=== PATIENT | female | born 1955 | race Caucasian/White ===

== ENCOUNTER → 2016-03-13 16:40 | Outpatient (CLI) | payer OTHER ==
[2010-04-16 15:18] VITALS: BMI 33.8
== END | disposition home or self-care (01) ==
LOC: D.MAMMO 15:30
DX: Z12.31 Encounter for screening mammogram for malignant neoplasm of breast (principal)

== ENCOUNTER 2016-12-05 11:29 | Outpatient (CLI) | payer OTHER ==
--- NOTE | ~2016-12-05 | HEMODYNAMI ---
PATIENT:FANNY HARTMAN MEDICAL RECORD: [id number] : 51 LOCATION:D.CAT ADMISSION DATE: 12/05/16 Generatedon:12/05/201614:11 Patient name: FANNY HARTMAN Patient #: [id number] SSN: : Date of study: 12/05/2016 Page: Of Hemodynamic Procedure Report Patient Data Patient Demographics Procedure consent was obtained First Name: FANNY Gender: Female Last Name: DEVAN : 1955 Middle Initial: APPLE Age: 61 year(s) Patient #: [id number] Race: Unknown Additional ID: [id number] Contact details [address]: [address] [place] [address] State: [place] City: [place] Zip code: [address] Admission Admission Data Admission Date: 12/05/2016 Admission Time: 11:29 Lab Results Lab Result Date: 12/05/2016 Lab Result Time: 0:00 Biochemistry Name Units Result Min Max Creatinine mg/dl 1.4 --(----)*- 0.6 1.3 CBC Name Units Result Min Max Hemoglobin g/dl 12.5 *-(----)-- 13.5 17.5 Procedure Procedure Types Cath Procedure Diagnostic Procedure [facility] w/Coronaries PCI Procedure Coronary Stent Initial Miscellaneous Procedures Moderate Sedation up to 30 minutes Procedure Description Procedure Date Procedure Date: 12/05/2016 Procedure Start Time: 13:34 Procedure End Time: 14:10 Procedure Staff Name Function Paulo Estrada MD Performing Physician Donna Casey RT Scrub Afshin Adkins RT Scrub Roge Shirley RT Monitor Benjamin Fischer RN Nurse Procedure Data Cath Procedure Fluoroscopy Diagnostic fluoroscopy Total fluoroscopy Time: 9.9 time: 9.9 min min Diagnostic fluoroscopy Total fluoroscopy dose: dose: 1182 mGy 1182 mGy Contrast Material Contrast Material Type Amount (ml) Isovue 300 137 Entry Location Entry Primary Successful Side Size Upsize Upsize Entry Closure [place] ccessful Closure Location (Fr) 1 (Fr) 2 (Fr) Remarks Device Remarks Radial Right 6 Fr Mechanical artery Short Compression Estimated blood loss: 10 ml Diagnostic catheters Device Type Used For End Catheter Placement Diagnostic Terumo 5Fr Procedure [place] 110cm catheter Procedure Complications No complications Procedure Medications Medication Administration Route Dosage 0.9% NaCl I.V. 100 ml/hr Oxygen NC 2 l/min Heparin Flush Bag added to field 2 bags (1000units/500ml NS) Lidocaine 2% added to field 20 Radial Cocktail added to field 1 syringe (Verapomil 2mg/Nitro 400mcg/Heparin 1500units) Versed I.V. 1 mg Fentanyl I.V. 50 mcg Radial Cocktail I.A. 1 syringe (Verapomil 2mg/Nitro 400mcg/Heparin 1500units) Heparin Bolus I.V. 5000 units Integrilin (Bolus I.V. 9 ml 2mg/ml) Fentanyl I.V. 50 mcg Plavix P.O. 600 mg Hemodynamics Rest HGB: 12.5 (g/dl) Heart Rate: 70 (bpm) Pressure Samples Time Site Value (mmHg) Purpose Heart Use Rate(bpm) 13:37 LV 131/2,9 Snapshot 75 13:38 AO 154/83(113) Pullback 77 13:38 LV 125/8,6 Pullback 77 13:38 AO 161/89(120) Snapshot 74 13:55 AO 188/90(131) Snapshot 75 Gradients Valve Time Site 1 Site 2 Mean SEP/DFP Peak To Heart Use (mmHg) (sec/min) Peak Rate (mmHg) (bpm) Aortic 13:38 LV AO 0 77 125/8,6 154/83(113) Calculations Valve P-P Mean Valve Index Valve Source Name Gradient Area Flow (cm2) Aortic 0 0 Snapshots Pre Cath Intra NCS Post Cath Vital Signs Time Heart Resp SPO2 etCO2 SY2tnxh NIBP (mmHg) Rhythm Pain Sedation Rate (ipm) (%) (mmHg) (mmHg) Status Level (bpm) 13:27:20 72 13 99 0 0 171/87(139) NSR 0 (11) 10(A) , No pain 13:32:21 67 18 96 0 0 159/83(125) NSR 0 (11) 10(A) , No pain 13:37:18 140 23 94 0 0 149/82(116) NSR 0 (11) 10(A) , No pain 13:42:10 72 16 94 0 0 147/85(107) NSR 0 (11) 10(A) , No pain 13:47:05 73 16 98 0 0 151/78(122) NSR 0 (11) 10(A) , No pain 13:52:01 74 18 99 0 0 160/76(118) NSR 0 (11) 10(A) , No pain 13:56:55 67 19 100 0 0 175/88(139) NSR 0 (11) 10(A) , No pain 14:01:54 67 19 100 0 0 165/75(131) NSR 0 (11) 10(A) , No pain 14:06:49 75 17 99 0 0 170/98(140) NSR 0 (11) 10(A) , No pain Medications Time Medication Route Dose Verified Delivered Reason Note s Effectiveness by by 13:25:47 0.9% NaCl I.V. 100 Benjamin Benjamin Per physician ml/hr Aaliyah Fischer RN RN 13:26:05 Oxygen NC 2 l/min Benjamin Benjamin Per physician Aaliyah Fischer RN RN 13:26:23 Heparin Flush added 2 bags Benjamin Benjamin used for Bag to Lorely Fischer procedure (1000units/500ml field RN RN NS) 13:26:47 Lidocaine 2% added 20ml Benjamin Benjamin for local to vial Aaliyah Fischer anesthetic field DAVILA RN 13:29:52 Radial Cocktail added 1 Benjamin Benjamin used for (Verapomil to syringe Lorigan Lorely procedure 2mg/Nitro RN RN 400mcg/Heparin 1500units) 13:30:06 Versed I.V. 1 mg Benjamin Benjamin for sedation Aaliyah Fischer RN RN 13:30:18 Fentanyl I.V. 50 mcg Benjamin Benjamin for sedation Aaliyah Ficsher RN RN 13:36:43 Radial Cocktail I.A. 1 Benjamin Paulo used for (Verapomil syringe Rachaeligan Sean procedure 2mg/Nitro LOLA MCCARTNEY 400mcg/Heparin 1500units) 13:47:17 Heparin Bolus I.V. 5000 Benjamin Benjamin for units Aaliyah Fischer anticoagulation RN RN 13:47:54 Integrilin I.V. 9 ml Benjamin Benjamin for (Bolus 2mg/ml) Aaliyah Fischer antiplatelet RN RN therapy 13:57:44 Fentanyl I.V. 50 mcg Benjamin Alexander for sedation Aaliyah Fischer RN RN 14:04:17 Plavix P.O. 600 mg Benjamin Alexander for Aaliyah Fischer antiplatelet RN RN therapy Procedure Log Time Note 13:00:53 Afshin Adkins RT(R) sent for patient. Start room use. 13:01:17 Lab Result : Creatinine 1.4 mg/dl 13:01:17 Lab Result : Hemoglobin 12.5 g/dl 13:03:56 Time tracking: Regular hours 13:04:03 Plan of Care:Hemodynamics will remain stable., Cardiac rhythm will remain stable., Comfort level will be maintained., Respiratory function will remain adequate., Patient/ family verbilizes understanding of procedure., Procedure tolerated without complication., Recovers from procedure without complications.. 13:04:31 H&P Date Dictated: 11/20/2016 Within 30 days and on chart., H&P Addendum completed by physician on day of procedure. (MUST COMPLETE FOR ALL OUTPATIENTS). 13:20:07 Patient received from Pre/Post Procedure Room to CCL 1 Alert and oriented. Tansferred to table in Supine position. 13:20:08 Correct patient and procedure confirmed by team. 13:20:08 Warm blankets applied, and tripp hugger turned on for patient comfort. 13:20:10 ECG and BP/O2 sat monitors applied to patient. 13:20:10 Signed procedure consent form obtained from patient. 13:25:12 Vital chart was started 13:25:47 0.9% NaCl 100 ml/hr I.V. was administered by Benjamin Fischer RN; Per physician; 13:26:05 Oxygen 2 l/min NC was administered by Benjamin Fischre RN; Per physician; 13:26:23 Heparin Flush Bag (1000units/500ml NS) 2 bags added to field was administered by Benjamin Fischer RN; used for procedure; 13:26:47 Lidocaine 2% 20ml vial added to field was administered by Benjamin Fischer RN; for local anesthetic; 13:28:14 Baseline sample Acquired. 13:28:18 Rhythm: sinus rhythm 13:28:26 Full Disclosure recording started 13:28:28 Pre-procedure instructions explained to patient. 13:28:28 Pre-op teaching completed and patient verbalized understanding. 13:28:31 Family in waiting room. 13:28:32 Patient NPO since Midnight. 13:28:36 Is the patient allergic to Iodine/contrast media? No. 13:28:37 Is patient on blood thinner?No 13:28:38 Patient diabetic? No. 13:28:42 Patient not . Patient is over age 55. 13:28:44 Previous problem with sedation/anesthesia? No ? 13:28:45 Snore? No 13:28:46 Sleep apnea? No 13:28:47 Deviated septum? No 13:28:48 Opens mouth fully? Yes 13:28:49 Sticks out tongue? Yes 13:28:51 Airway obstruction? No ? 13:28:53 Dentures? No ? 13:28:56 Pre procedure: right dorsailis pedis pulse 1+ Palpable, but thready & weak; easily obliterated 13:28:58 Modified Armani's test Ulnar < 7 seconds 13:29:02 Patient pain scale 0/10 ?. 13:29:09 IV patent on arrival in left forearm with 0.9% NaCl at [facility]. 13:29:15 Lab results completed and on chart. 13:29:29 Right Radial & Right Groin area was prepped with chlora-prep and draped in sterile fashion 13:29:31 Alarms reviewed by R. N. 13:29:31 Sharps counted by scrub and verified by R.N. 13:29:32 --------ALL STOP TIME OUT------ 13:29:33 Final Timeout: patient, procedure, and site verified with staff and physician. All members of the team are in agreement. 13:29:36 Right Radial & Right Groin site verified by team. 13:29:41 Physical assessment completed. ASA score P 2 - A patient with mild systemic disease as per Paulo Estrada MD. 13:29:45 Sedation plan: IV Moderate Sedation Versed, Fentanyl 13:29:52 Radial Cocktail (Verapomil 2mg/Nitro 400mcg/Heparin 1500units) 1 syringe added to field was administered by Benjamin Fischer RN; used for procedure; 13:30:06 Versed 1 mg I.V. was administered by Benjamin Fischer RN; for sedation; 13:30:18 Fentanyl 50 mcg I.V. was administered by Benjamin Fischer RN; for sedation; 13:32:31 Use device set Radial Dx 13:32:32 Tegaderm 4 x 4 opened to sterile field. 13:32:33 Acist Hand Control opened to sterile field. 13:32:34 Acist Manifold opened to sterile field. 13:32:35 Acist Syringe opened to sterile field. 13:32:35 Medline Cath Pack opened to sterile field. 13:32:35 Bag Decanter opened to sterile field. 13:32:36 Terumo 6Fr Slender Glidesheath opened to sterile field. 13:32:36 St [place] 260cm J .035 wire opened to sterile field. 13:32:36 MBrace Wrist Support opened to sterile field. 13:34:32 Procedure started. 13:34:37 Local anesthetic to right radial artery with Lidocaine 2% by Paulo Estrada MD.INITIAL ACCESS ONLY 13:36:07 A 6 Fr Short sheath was inserted into the Right Radial artery 13:36:43 Radial Cocktail (Verapomil 2mg/Nitro 400mcg/Heparin 1500units) 1 syringe I.A. was administered by Paulo Estrada MD; used for procedure; 13:36:54 A Diagnostic Terumo 5Fr [place] 110cm catheter was advanced over the wire and used for Procedure. 13:37:58 LV angiography performed. 13:38:02 LV gram done using [place] 13:38:07 EF : 55 % 13:38:18 LV hemodynamics recorded. 13:38:20 Injector settings: Ml/sec: 7, Volume: 15, 13:39:04 LCA angiography performed. 13:40:41 RCA angiography performed. 13:41:38 Catheter exchanged over wire. 13:42:15 Delvalle Whisper J 300cm 0.014 guide wire opened to sterile field. 13:42:16 [employer] BasixCompak Inflation Kit opened to sterile field. 13:42:16 PolyRemedy Launcher 6Fr EBU 3.5 guide catheter opened to sterile field. 13:43:12 Study PCI Site: [place] mCirc has 90% stenosis. 13:43:18 ACC Pre-intervention TRACIE Flow is 3. 13:43:49 6 Fr EBU 3.5 guide catheter was inserted over the wire 13:46:19 WHISPER wire advanced. 13:47:17 Heparin Bolus 5000 units I.V. was administered by Benjamin Fischer RN; for anticoagulation; 13:47:54 Integrilin (Bolus 2mg/ml) 9 ml I.V. was administered by Benjamin Fischer RN; for antiplatelet therapy; 13:48:42 Wire advanced across lesion. 13:49:54 Inflation number: 1 A [place] Sci Perkins 3.0 X 15 balloon was prepped and advanced across the Mid CX, then inflated to 10 ASMITA for 0:30 (min:sec). 13:52:24 Balloon removed over the wire. 13:54:37 Inflation Number: 2 A Mihir RX 3.0 x 26 stent was prepped and advanced across the Mid CX. The stent was deployed at 14 ASMITA for 0:45 (min:sec). 13:54:59 Stent catheter was removed intact over wire. 13:55:26 Perkins readvanced. 13:57:44 Fentanyl 50 mcg I.V. was administered by Benjamin Fischer RN; for sedation; 14:00:05 Delvalle Whisper J 300cm 0.014 guide wire opened to sterile field. 14:01:21 Whisper wire damaged, new Whisper advanced in attempt to wire the OM. 14:01:58 Wire advanced across lesion. 14:03:18 The [place] Sci Perkins 2.0 X 12 balloon was advanced and then removed because of failure to cross lesion 14:03:36 Terumo TR Band Standard opened to sterile field. 14:03:46 ACC Post-intervention TRACIE Flow is 3. 14:03:52 Wire removed. 14:03:53 Guide catheter removed. 14:04:03 Sheath removed intact; hemostasis achieved with Mechanical Compression to the Right Radial artery. 14:04:05 Procedure ended.(Physican Out) 14:04:17 Plavix 600 mg P.O. was administered by Benjamin Fischer RN; for antiplatelet therapy; 14:04:55 Fluoroscopy time 09.90 minutes. 14:05:01 Flurop Dose total: 1182 14:05:01 Fluoroscopy dose: 1182 mGy 14:05:05 Contrast amount:Isovue 300 137ml. 14:05:06 Sharps counted by scrub and verified by R.N. 14:05:08 TR band inflated with 12cc of air. 14:05:10 Insertion/operative site no bleeding no hematoma. 14:05:12 Post Procedure Pulses reassessed and unchanged 14:05:14 Post-procedure physical assessment completed. ASA score P 2 - A patient with mild systemic disease as per Paulo Estrada MD. 14:05:16 Post procedure rhythm: unchanged. 14:05:19 Estimated blood loss: 10 ml 14:05:20 Post procedure instruction explained to patient.Patient verbalizes understanding. 14:05:20 Patient needs reinforcement of post procedure teaching. 14:05:36 Procedure type changed to Cath procedure, Diagnostic procedure, LHC, LHC w/Coronaries, PCI procedure, Coronary Stent Initial, Miscellaneous Procedures, Moderate Sedation up to 30 minutes 14:05:38 Procedure and supply charges have been captured, reviewed, submitted and are correct. 14:05:41 Procedure Complication : No complications 14:10:44 Vital chart was stopped 14:10:45 See physician's report for complete and final results. 14:10:46 Report given to Pre/Post Procedure Room. 14:10:49 Patient transfered to Pre/Post Procedure Room with Stretcher. 14:10:51 Procedure ended. 14:10:51 Full Disclosure recording stopped 14:10:56 End room use (Document Last) Intervention Summary Intervention Notes Time ActionType Lesion and Equipment Action# Pressure Duration Attributes Used 13:49:54 Inflate Mid CX [place] 1 10 00:30 balloon Sci Perkins 3.0 X 15 balloon 13:54:37 Place stent Mid CX Mihir RX 2 14 00:45 3.0 x 26 stent 14:03:18 Discard [place] Balloon Sci Perkins 2.0 X 12 balloon Device Usage Item Name Manufacture Quantity Catalog Number Hospital Part Current Min imal Lot# / Charge Number Stock Stock Serial# Code Tegaderm 4 1 [id number] [id number] [id number] 5 x 4 Acist Hand Acist 1 25408 660754 749834 464306 5 Control Medical Systems Inc Acist Acist 1 67361 141409 538575 193695 5 Manifold Medical Systems Inc Acist Acist 1 01978 473631 127276 987330 20 Syringe Medical Systems Inc Medline Cardinal 1 [id number] 369525 66660 497792 5 Cath Pack Health Bag Microtek 1 2001S 379007 96276 089357 5 Stealth [employer] Network[employer] Grid. Terumo 6Fr Terumo 1 [id number] 612191 003075 546875 [address] St Randal 1 959554 903990 638441 300311 30 260cm J .035 wire MBrace Advanced 1 140-0250-00 615359 23537 626207 5 Wrist Vascular Support Dynamics Diagnostic Terumo 1 40-8143 943539 633936 151205 5 Terumo 5Fr [place] 110cm catheter [facility] 2 [id number] 524509 996994 660271 5 Whisper J Vascular 300cm 0.014 guide wire Merit Merit 1 [id number] 417461 809936 808422 15 BasixCompak Medical Inflation Kit Medtronic Medtronic 1 [id number] 303392 85286 338316 3 Launcher 6Fr EBU 3.5 guide catheter [place] Sci [place] 1 [id number] 305898 367025 542196 1 [id number] Perkins Scientific 3.0 X 15 balloon Shiloh RX 3.0 Medtronic 1 [id number] 640436 8712394 163327 5 [id number] x 26 stent [place] Sci [place] 1 [id number] 613524 938059 848470 1 [id number] Perkins Scientific 2.0 X 12 balloon Terumo TR Terumo 1 [id number] 216076 134603 698611 40 Band Standard Signature Audit [place] Stage Time Signature Unsigned Intra-Procedure 12/05/2016 Afshin Adkins 2:11:22 PM RT(R) Signatures Monitor : Roge Shirley RT Signature : Date : Time : [facility] [address], [place] [address]
[2016-12-05] MEDS ORDERED: AMABELZ 0.5 MG1 EACH PO (11:48)
[2016-12-05] MEDS ORDERED: LOSARTAN POTASS25 MG PO (11:48)
[2016-12-05] MEDS ORDERED: ZIAC 5-6.25 MG1 TAB PO (11:48)
[2016-12-05] MEDS ORDERED: ASPIRIN325 MG PO (11:49)
[2016-12-05] MEDS ORDERED: OMEPRAZOLE20 M1 PO (11:49)
[2016-12-05] MEDS ORDERED: ZYRTEC10 MG PO (11:49)
[2016-12-05] MEDS ORDERED: VITAMIN D31000 UNIT PO (11:50)
[2016-12-05] MEDS ORDERED: PROBIOTIC1 EAC1 PO (11:50)
[2016-12-05] MEDS ORDERED: MULTIPLE VITAMI1 TA1 PO (11:50)
[2016-12-05] MEDS ORDERED: ASCORBIC ACID500 MG PO (11:51)
[2016-12-05] MEDS ORDERED: VITAMIN B-12100 MCG PO (11:51)
[2016-12-05 12:03] VITALS: BP 183/92; BMI 37.8
[2016-12-05 12:15] LABS: BASOPHILS 0.6 % (0-2); EOSINOPHILS 2.8 % (0-7); HEMATOCRIT 37.2 % (36.0-48.0); HEMOGLOBIN 12.5 g/dL (12-16); IMMATURE GRANULOCYTES 0.3 % (0-5); LYMPHOCYTES 24.5 % (15-50); MCH 30.3 pg (26.0-34.0); MCHC 33.6 g/dL (31.0-37.0); MCV 90.3 fL (80.0-100.0); MEAN PLATELET VOLUME 9.6 fL (7.4-10.4); MONOCYTES 6.6 % (2-11); NEUTROPHILS 65.2 % (40-80); PLATELET COUNT 311 10x3/uL (130-400); RBC 4.12 10x6/uL (4.00-5.40); RDW 12.9 % (11.5-14.5); WBC 7.9 10x3/uL (4.8-10.8)
[2016-12-05 12:24] LABS: ANION GAP 10.4 mmol/L (8-16); CALCIUM 9.1 mg/dL (8.5-10.1); CARBON DIOXIDE 27.7 mmol/L (21.0-32.0); CREATININE - SERUM 1.4 mg/dL (0.6-1.3); POTASSIUM - SERUM 4.1 mmol/L (3.5-5.1)
[2016-12-05] MEDS ORDERED: PLAVIX75 MG PO (14:26)
--- NOTE | 2016-12-05 14:36 | NUR ---
1435 HOB ELEVATED, AWAKE AND TALKING WITH FAMILY AT BEDSIDE. NSR RATE 61 WNO C/O CHEST PAIN. PULSES PALP X 4. R WRIST TR BAND HEMATOMA DEVELOPING ON ARRIVAL. ADJUSTED BY CRISTIAN RON, WILL MONITOR FOR CONTINUED BLEEDING. DENIES NEEDS AT THIS TIME.
--- NOTE | 2016-12-05 15:32 | NUR ---
1500 R WRIST TR BAND REMAINS C/D/I. ALL VITALS WNL. ROOM AIR. DENIES NEEDS AT THIS TIME. AT BEDSIDE.
--- NOTE | 2016-12-05 16:39 | NUR ---
1600 R WRIST TR BAND REMAINS C/D/I W NO HEMATOMA OR BLEEDING.
--- NOTE | 2016-12-05 17:12 | NUR ---
2CC AIR REMOVED FROM R WRIST TR BAND. WILL MONITOR FOR BLEEDING.
--- NOTE | 2016-12-05 17:38 | NUR ---
PIV REMOVED FROM R AC WITH BANDAID APPLIED. ANOTHER 2CC AIR REMOVED FROM R WRIST TR BAND. WRIST IS ALREADY BRUISING FROM HEMATOMA ON ARRIVAL. PATIENT UP TO BEDSIDE TO DRESS WITH ASSIST FROM .
--- NOTE | 2016-12-05 17:41 | NUR ---
AMBULATED TO BATHROOM TO VOID.
--- NOTE | 2016-12-05 17:55 | NUR ---
D/C INSTRUCTIONS DISCUSSED WITH PATIENT AND , PLAVIX RX IN HAND. TR BAND WEANED AND REMOVED. COTTON BALL AND TEGADERM APPLIED, BRACE RE-APPLIED TO R WRIST. BOTH VERBALIZED UNDERSTANDING OF POST CATH INSTRUCTIONS. WHEELED OUT VIA WHEELCHAIR.
--- NOTE | 2016-12-06 14:50 | OP ---
PATIENT NAME: FANNY HARTMAN MEDICAL RECORD: [id number] :51 LOCATION:D.CAT ADMISSION DATE: SURGEON: SILVIA WHITE MD DATE OF OPERATION: 12/05/2016 PROCEDURES: Left heart catheterization, selective coronary angiography, right radial approach. CATHETERS: A 5-[place] sheath, 5/4 left and right Felipe, 5/4 pig. The procedure was well tolerated. The patient returned to the butterfield, sheath removed. TR band was placed. FINDINGS: Left ventriculography in 30-degree [place] view: Normal wall motion and normal systolic function. CORONARY ANATOMY: LEFT MAIN: Left main is free of disease. LAD: Has a proximal stenosis of about 80%, otherwise free of disease. CIRCUMFLEX: Circumflex has a long diffuse stenosis of about 90%, best seen in caudal view. RIGHT CORONARY ARTERY: Free of disease. IMPRESSION: Plan intervention to the circumflex. PLAN: Intervention to the circumflex momentarily, LAD at a later date. Using indwelling sheath, EBU 3.5 catheter provided good guide catheter support followed by 300-cm Whisper wire, which was placed across the occluded circumflex to distal portion of this vessel. Predeployment balloon was a 3.0 x 15 mm [place] up to 10 atmospheres. Stent deployed was a 3.0 x 26-mm [place] drug-eluting stent up to 14 atmospheres for 45 seconds. Final angiography shows excellent resolution of 90% plus circumflex stenosis, there was no significant residual. There was some snowplowing to small OM. We were able to place a wire across this, but unable to place a balloon. The stent struts shows was left with some residual in the small OM. Plan: Intervention to LAD at a later date. TRANSINT:[id number] Voice Confirmation ID: [id number] DOCUMENT ID: [id number] SILVIA WHITE MD at 1450 CC: [id number] DICTATION DATE: 12/05/16 1415 RELOCATION COUNSELOR: 12/05/16 1449 DEP CLI 12/05/16 [place] [address]
== END 2016-12-05 17:56 | disposition home or self-care (01) ==
LOC: D.CATH 11:29
PROVIDERS: Internal Medicine Interventional Cardiology
DX: I20.9 Angina pectoris, unspecified (principal); I10 Essential (primary) hypertension; E78.5 Hyperlipidemia, unspecified; Z01.812 Encounter for preprocedural laboratory examination
CPT/HCPCS: 93458; C9600

== ENCOUNTER 2016-12-21 11:03 | Outpatient (CLI) | payer OTHER ==
--- NOTE | ~2016-12-21 | HEMODYNAMI ---
PATIENT:FANNY HARTMAN MEDICAL RECORD: [id number] : 51 LOCATION:D.CAT ADMISSION DATE: 12/21/16 Generatedon:12/21/201614:46 Patient name: FANNY HARTMAN Patient #: [id number] SSN: : Date of study: 12/21/2016 Page: Of Hemodynamic Procedure Report Patient Data Patient Demographics Procedure consent was obtained First Name: FANNY Gender: Female Last Name: DEVAN : 1955 Middle Initial: APPLE Age: 61 year(s) Patient #: [id number] Race: Unknown Additional ID: [id number] Contact details [address]: [address] [place] [address] State: [place] City: [place] Zip code: [address] Admission Admission Data Admission Date: 12/21/2016 Admission Time: 11:03 Lab Results Lab Result Date: 12/21/2016 Lab Result Time: 0:00 Biochemistry Name Units Result Min Max BUN mg/dl 23 --(----)-* 7 18 Creatinine mg/dl 1.3 --(---*)-- 0.6 1.3 CBC Name Units Result Min Max Hematocrit % 35.1 *-(----)-- 42 54 Hemoglobin g/dl 11.7 *-(----)-- 13.5 17.5 Procedure Procedure Types Cath Procedure PCI Procedure Coronary Stent Initial Miscellaneous Procedures Moderate Sedation up to 15 minutes Procedure Description Procedure Date Procedure Date: 12/21/2016 Procedure Start Time: 14:30 Procedure End Time: 14:43 Procedure Staff Name Function Paulo Estrada MD Performing Physician Andra Braun RT Scrub Suyapa Stone RN Nurse Roge Shirley RT Monitor Procedure Data Cath Procedure Fluoroscopy Diagnostic fluoroscopy Total fluoroscopy Time: 1.6 time: 1.6 min min Diagnostic fluoroscopy Total fluoroscopy dose: 376 dose: 376 mGy mGy Contrast Material Contrast Material Type Amount (ml) Isovue 300 41 Entry Location Entry Primary Successful Side Size Upsize Upsize Entry Closure Succes sful Closure Location (Fr) 1 (Fr) 2 (Fr) Remarks Device Remarks Femoral Right 6 Fr Exoseal artery Short Estimated blood loss: 10 ml Procedure Complications No complications Procedure Medications Medication Administration Route Dosage Oxygen NC 2 l/min Lidocaine 2% added to field 20 Heparin Flush Bag added to field 2 bags (1000units/500ml NS) 0.9% NaCl I.V. 100 ml/hr Versed I.V. 1 mg Fentanyl I.V. 50 mcg Heparin Bolus I.V. 4000 units Versed I.V. 1 mg Fentanyl I.V. 50 mcg Versed I.V. 1 mg Hemodynamics Rest HGB: 11.7 (g/dl) Heart Rate: 74 (bpm) Snapshots Pre Cath Intra NCS Post Cath Vital Signs Time Heart Resp SPO2 etCO2 NIBP (mmHg) Rhythm Pain Sedation Rate (ipm) (%) (mmHg) Status Level (bpm) 14:26:08 70 17 100 42.1 175/97(148) NSR 0 (11) 10(A) , No pain 14:30:26 74 16 96 39.9 158/97(119) NSR 0 (11) 9(A) , No pain 14:34:38 73 16 99 31.6 155/90(134) NSR 0 (11) 9(A) , No pain 14:38:50 72 15 100 34.6 169/88(139) NSR 0 (11) 9(A) , No pain 14:43:08 72 16 100 35.4 158/84(128) NSR 0 (11) 10(A) , No pain Medications Time Medication Route Dose Verified Delivered Reason Notes Effectiveness by by 14:26:58 Oxygen NC 2 Paulo José Manuelie used for l/min St. Melvin Stone RN procedure 14:27:07 Lidocaine 2% added 20ml Paulo Buffie for local to vial St. Melvin Stone RN anesthetic field 14:27:13 Heparin Flush added 2 Paulo Buffie used for Bag to bags St. Melvin Stone RN procedure (1000units/500ml field MCCARTNEY NS) 14:27:22 0.9% NaCl I.V. 100 Paulo Buffie Per physician ml/hr [facility]. Melvin Stone RN, MD 14:28:41 Versed I.V. 1 mg Paulo José Manuelie for sedation St. Melvin Stone RN, MD 14:28:46 Fentanyl I.V. 50 Paulo Georgesie for sedation mcg St. Melvin Stone RN, MD 14:30:59 Heparin Bolus I.V. 4000 Paulo Buffie for verifi ed units St. Melvin Stone RN anticoagulation with dr MD martinez 14:32:07 Versed I.V. 1 mg Paulo Georgesie for sedation St. Melvin Stone RN, MD 14:32:11 Fentanyl I.V. 50 Paulo Georgesie for sedation mcg St. Melvin Stone RN, MD 14:38:08 Versed I.V. 1 mg Paulo Georgesie for sedation St. Melvin Stone RN, MD Procedure Log Time Note 13:59:28 Andra Counts RT(R) sent for patient. Start room use. 13:59:29 Time tracking: Regular hours 13:59:32 Plan of Care:Hemodynamics will remain stable., Cardiac rhythm will remain stable., Comfort level will be maintained., Respiratory function will remain adequate., Patient/ family verbilizes understanding of procedure., Procedure tolerated without complication., Recovers from procedure without complications.. 14:07:57 Patient received from Pre/Post Procedure Room to CCL 2 Alert and oriented. Tansferred to table in Supine position. 14:07:58 Warm blankets applied, and tripp hugger turned on for patient comfort. 14:07:59 Correct patient and procedure confirmed by team. 14:08:00 Signed procedure consent form obtained from patient. 14:08:01 ECG and BP/O2 sat monitors applied to patient. 14:08:01 Full Disclosure recording started 14:25:01 Vital chart was started 14:25:45 Baseline sample Acquired. 14:25:51 Rhythm: sinus rhythm 14:25:56 H&P Date Dictated: 12/21/2016 Within 30 days and on chart.. 14:25:57 Pre-procedure instructions explained to patient. 14:25:57 Pre-op teaching completed and patient verbalized understanding. 14:25:58 Family in waiting room. 14:25:59 Patient NPO since Midnight. 14:26:02 Is patient on blood thinner?Yes 14:26:05 ACC The patient was administered the following blood thiners within the last 24 hours: ACCPlavix 14:26:07 Patient diabetic? No. 14:26:10 Previous problem with sedation/anesthesia? No ? 14:26:12 Snore? Yes 14:26:13 Sleep apnea? No 14:26:13 Deviated septum? No 14:26:14 Opens mouth fully? Yes 14:26:15 Sticks out tongue? Yes 14:26:18 Airway obstruction? No ? 14:26:20 Dentures? No ? 14:26:23 Pre procedure: right dorsailis pedis pulse 1+ Palpable, but thready & weak; easily obliterated 14:26:26 Patient pain scale 0/10 ?. 14:26:31 IV patent on arrival in right forearm with 0.9% NaCl at [facility]. 14:26:58 Oxygen 2 l/min NC was administered by Suyapa Stone RN; used for procedure; 14:27:07 Lidocaine 2% 20ml vial added to field was administered by Suyapa Stone RN; for local anesthetic; 14:27:13 Heparin Flush Bag (1000units/500ml NS) 2 bags added to field was administered by Suyapa Stone RN; used for procedure; 14:27:22 0.9% NaCl 100 ml/hr I.V. was administered by Suyapa Sotne RN; Per physician; 14:28:00 PERCUTANEOUS ENTRY 19GA needle opened to sterile field. 14:28:02 Lab Result : BUN 23 mg/dl 14:28:02 Lab Result : Creatinine 1.3 mg/dl 14:28:02 Lab Result : Hemoglobin 11.7 g/dl 14:28:02 Lab Result : Hematocrit 35.1 % 14:28:04 Lab results completed and on chart. 14:28:06 Cordis 6FR XBLAD 3.5 guide catheter opened to sterile field. 14:28:06 Right groin area was prepped with chlora-prep and draped in sterile fashion 14:28:07 Alarms reviewed by Es Chew 14:28:10 Use device set Femoral PCI 14:28:11 Tegaderm 4 x 4 opened to sterile field. 14:28:14 Acist Syringe opened to sterile field. 14:28:14 Acist Hand Control opened to sterile field. 14:28:15 Bag Decanter opened to sterile field. 14:28:15 Medline Cath Pack opened to sterile field. 14:28:16 Acist Manifold opened to sterile field. 14:28:17 Terumo 6Fr Kermit Sheath opened to sterile field. 14:28:18 St Randal 260cm J .035 wire opened to sterile field. 14:28:18 Merit BasixCompak Inflation Kit opened to sterile field. 14:: Delvalle Whisper J 300cm 0.014 guide wire opened to sterile field. 14:: Physician arrived 14: --------ALL STOP TIME OUT------ 14: Final Timeout: patient, procedure, and site verified with staff and physician. All members of the team are in agreement. 14:: Right groin site verified by team. 14::33 Physical assessment completed. ASA score P 2 - A patient with mild systemic disease as per Paulo Estrada MD. 14::36 Sedation plan: IV Moderate Sedation Versed, Fentanyl 14::41 Versed 1 mg I.V. was administered by Suyapa Stone RN; for sedation; 14::46 Fentanyl 50 mcg I.V. was administered by Suyapa Stone RN; for sedation; 14:30:13 Zero performed for pressure channel P1 14::36 Procedure started. 14:30:38 Local anesthetic to right femoral artery with Lidocaine 2% by Paulo Estrada MD.INITIAL ACCESS ONLY 14:30:45 A 6 Fr Short sheath was inserted into the Right Femoral artery 14:30:54 6 Fr xblad 3.5 guide catheter was inserted over the wire 14:30:59 Heparin Bolus 4000 units I.V. was administered by Suyapa Stone RN; for anticoagulation; verified with dr martinez 14:32:07 Versed 1 mg I.V. was administered by Suyapa Stone RN; for sedation; 14:32:11 Fentanyl 50 mcg I.V. was administered by Suyapa Stone RN; for sedation; 14:34:28 whisper wire advanced. 14:35:06 Wire advanced across lesion. 14:37:06 Inflation Number: 1 A Mihir OTW 3.0 x 08 stent was prepped and advanced across the Prox LAD. The stent was deployed at 14 ASMITA for 0:30 (min:sec). 14:37:17 Stent catheter was removed intact over wire. 14:37:18 Wire removed. 14:37:18 Guide catheter removed. 14:37:26 Cordis 6Fr Exoseal opened to sterile field. 14:37:32 Sheath removed intact; hemostasis achieved with Exoseal to the Right Femoral artery. 14:37:33 Procedure ended.(Physican Out) 14:38:08 Versed 1 mg I.V. was administered by Suyapa Stone RN; for sedation; 14:39:35 Fluoroscopy time 01.60 minutes. 14:39:45 Flurop Dose total: 376 14:39:45 Fluoroscopy dose: 376 mGy 14:39:50 Contrast amount:Isovue 300 41ml. 14:39:51 Sharps counted by scrub and verified by R.N. 14:39:58 Insertion/operative site no bleeding no hematoma. 14:40:02 Post-op/insertion site Right Femoral artery dressed using a 4 x 4 and Tegaderm. 14:40:06 Post right femoral artery:stable, soft, clean and dry 14:40:07 Post Procedure Pulses reassessed and unchanged 14:40:08 Post-procedure physical assessment completed. ASA score P 2 - A patient with mild systemic disease as per Paulo Estrada MD. 14:40:11 Post procedure rhythm: unchanged. 14:40:13 Estimated blood loss: 10 ml 14:40:15 Post procedure instruction explained to patient.Patient verbalizes understanding. 14:40:15 Patient needs reinforcement of post procedure teaching. 14:40:23 Procedure type changed to Cath procedure, PCI procedure, Coronary Stent Initial, Miscellaneous Procedures, Moderate Sedation up to 15 minutes 14:43:39 Procedure and supply charges have been captured, reviewed, submitted and are correct. 14:43:41 Procedure Complication : No complications 14:43:42 Vital chart was stopped 14:43:43 See physician's report for complete and final results. 14:43:44 Report given to Pre/Post Procedure Room. 14:43:46 Patient transfered to Pre/Post Procedure Room with Stretcher. 14:43:48 Procedure ended. 14:43:48 Full Disclosure recording stopped 14:44:34 End room use (Document Last) Intervention Summary Intervention Notes Time ActionType Lesion and Equipment Action# Pressure Duration Attributes Used 14:37:06 Place stent Prox LAD Rutland OTW 1 14 00:30 3.0 x 08 stent Device Usage Item Name Manufacture Quantity Catalog Hospital Part Current Minim al Lot# / Number Charge Number Stock Stock Serial# Code Tegaderm 4 x 3M 1 [id number] 227872 887380 5 4 Acist Acist 1 98523 306857 494275 068367 20 Syringe Medical Systems Inc Acist Hand Acist 1 48385 684178 754702 457599 5 Control Medical Systems Inc Bag Decanter Microtek 1 2002S 318800 27793 149052 5 Medical Inc. Medline Cath Cardinal 1 [id number] 198378 22977 472081 5 Pack Health Acist Acist 1 07157 109149 354538 501755 5 Manifold Medical Systems Inc Terumo 6Fr Terumo 1 QUT255 706515 133728 983567 [address] [facility] St Randal 1 212473 578415 148235 791035 30 260cm J .035 wire Merit Merit 1 [id number] 982229 145435 208381 15 BasixCompak Medical Inflation Kit Delvalle Delvalle 1 [id number] 168079 751631 725697 5 Whisper J Vascular 300cm 0.014 guide wire Mihir OTW 3.0 Medtronic 1 [id number] 937411 8154693 828485 5 [id number] x 08 stent Cordis 6Fr Cardinal 1 EX600 287281 094808 176559 10 Splashscore PERCUTANEOUS [employer] 1 C99392 067035 303241 5 ENTRY 19GA needle Cordis 6FR Cardinal 1 [id number] 682580 511136 110988 10 Phloronol 3.5 Axentra guide catheter Signature Audit Dayhoit Stage Time Signature Unsigned Intra-Procedure 12/21/2016 Roge Shirley 2:45:57 PM RT(R) Signatures Monitor : Roge Shirley RT Signature : Date : Time : [facility] [address] [place] [address]
[~2016-12-21 11:03] MED LIST: AMABELZ 0.5 MG1 EACH PO; ASCORBIC ACID500 MG PO; ASPIRIN325 MG PO; LOSARTAN POTASS25 MG PO; MULTIPLE VITAMI1 TA1 PO; OMEPRAZOLE20 M1 PO; PLAVIX75 MG PO; PROBIOTIC1 EAC1 PO; VITAMIN B-12100 MCG PO; VITAMIN D31000 UNIT PO; ZIAC 5-6.25 MG1 TAB PO; ZYRTEC10 MG PO
[2016-12-21 11:42] VITALS: BP 147/76; BMI 37.8
[2016-12-21 12:03] LABS: BASOPHILS 0.9 % (0-2); EOSINOPHILS 2.8 % (0-7); HEMATOCRIT 35.1 % (36.0-48.0); HEMOGLOBIN 11.7 g/dL (12-16); IMMATURE GRANULOCYTES 0.2 % (0-5); LYMPHOCYTES 18.8 % (15-50); MCH 30.2 pg (26.0-34.0); MCHC 33.3 g/dL (31.0-37.0); MCV 90.7 fL (80.0-100.0); MEAN PLATELET VOLUME 9.3 fL (7.4-10.4); MONOCYTES 11.2 % (2-11); NEUTROPHILS 66.1 % (40-80); PLATELET COUNT 312 10x3/uL (130-400); RBC 3.87 10x6/uL (4.00-5.40); WBC 6.4 10x3/uL (4.8-10.8)
[2016-12-21 12:25] LABS: ANION GAP 16.4 mmol/L (8-16); CALCIUM 8.9 mg/dL (8.5-10.1); CARBON DIOXIDE 25.9 mmol/L (21.0-32.0); CREATININE - SERUM 1.3 mg/dL (0.6-1.3); POTASSIUM - SERUM 4.3 mmol/L (3.5-5.1)
--- NOTE | 2016-12-21 14:55 | NUR ---
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 NSR PER MONITOR WITH A RATE OF 65. DRESSING TO RIGHT GROIN IS CDI, AREA IS SOFT AND NONTENDER. PEDAL PULSES PALPABLE, CAP REFILL IS BRISK. AT BEDSIDE, CALL LIGHT IS IN REACH.
--- NOTE | 2016-12-21 15:15 | NUR ---
1515 PO FLUIDS SERVED. PT DENIES ANY C/O. DRESSING CDI, AREA SOFT. PULSES PALPABLE. AT BEDSIDE, CALL LIGHT IS IN REACH.
--- NOTE | 2016-12-21 15:35 | NUR ---
1530 DRESSING RIGHT GROIN IS CDI, AREA SOFT AND NONTENDER. PEDAL PULSES PALPABLE, VSS. NSR, RATE OF 62. CALL LIGHT IN REACH.
--- NOTE | 2016-12-21 16:00 | NUR ---
1600 DRESSING RIGHT GROIN IS CDI, AREA SOFT AND NONTENDER. VSS. CALL LIGHT IN REACH,. AT BEDSIDE.
--- NOTE | 2016-12-21 16:31 | NUR ---
1630 PT SLEEPING, DRESSING CDI, AREA SOFT. PEDAL PULSES PALPABLE. AT BEDSIDE. CALL LIGHT IN REACH.
--- NOTE | 2016-12-21 17:57 | NUR ---
HOB ELEVATED, SANDWICH SERVED. PT DENIES ANY C/O. DRESSING TO RIGHT GROIN IS CDI, AREA IS SOFT AND NONTENDER. PEDAL PULSES PALPABLE.
--- NOTE | 2016-12-21 18:45 | NUR ---
1845 PT HAS TOLERATED SANDWICH AND PO FLUIDS WITH NO C/O. ASSISTED PT WITH DRESSING FOR DC TO HOME. PT C/O FEELING NAUSEATED AND FAINT WITH MOVEMENT. ASSISTED PT BACK TO BED AND PT STATES FEELS BETTER WITHIN A MINUTE. RECHECK BP 158/70, HR IS 72. PT DENIES ANY C/O CHEST PAIN, STATES SORENESS TO GROIN WITH MOVEMENT. RECHECKED GROIN AND DRESSING REMAINS CDI, NO BLEEDING OR HEMATOMA NOTED. REVIEWED DC INSTRUCTIONS WITH PT AND WHO VERBALIZE UNDERSTANDING.
--- NOTE | 2016-12-21 19:12 | NUR ---
1905 ASSISTED PT TO BATHROOM USING WC, PT VOIDED QS. STATES FEELS READY FOR DC TO HOME. ASSISTED PT TO PVT AUTO VIA WC WITH DRIVING HER HOME.
--- NOTE | 2016-12-25 11:08 | OP ---
PATIENT NAME: FANNY HARTMAN MEDICAL RECORD: [id number] :51 LOCATION:D.CAT ADMISSION DATE: SURGEON: SILVIA WHITE MD DATE OF OPERATION: 12/21/2016 STENT REPORT For catheterization report, please see dictation previously done. A 6-Andorran sheath was placed in the right femoral artery. A XB LAD 3.5 guiding catheter provided good guide support followed by 300-cm Whisper wire, which was placed across the ostial stenosis of 80% from LAD down to this portion of vessel. Stent deployed was a 3.0 x 8-mm Mihir drug-eluting stent up to 14 atmospheres for 45 seconds. Final injection showed excellent resolution of 80% ostial LAD stenosis. No significant residual. TRACIE flow was 3 throughout the procedure. Heparin was used in the case. The patient was placed on Plavix. Sheath was closed with ExoSeal. TRANSINT:[id number] Voice Confirmation ID: [id number] DOCUMENT ID: [id number] SILVIA WHITE MD at 1108 CC: [id number] DICTATION DATE: 12/21/16 1449 SCALEHOUSE ATTENDANT: 12/21/16 1703 DEP CLI 12/21/16 [facility] [address] [place] [address]
--- NOTE | 2016-12-25 11:08 | HP ---
PATIENT: FANNY HARTMAN MEDICAL RECORD: [id number] ACCOUNT: [id number] LOCATION:KEV : 51 ADMISSION DATE: 12/21/16 HISTORY AND PHYSICAL EXAMINATION HISTORY OF PRESENT ILLNESS: A 61-year-old female with a known history of coronary artery disease, status post recent intervention of the circumflex. She has a history of dyslipidemia, intolerant to higher dose of statin. She has history of diabetes. She is being admitted for intervention to her LAD this date. PAST MEDICAL HISTORY: She has history of: 1. Hypertension. 2. Hyperlipidemia. 3. Diabetes mellitus. MEDICATIONS: Include pravastatin 20 every day, bisoprolol 5 every day, Lasix 20 every day, fish oil 1 gram t.i.d. REVIEW OF SYSTEMS: The patient reports easy bruising but reports no swollen glands. The patient reports no fever, no night sweats, no significant weight gain, no significant weight loss. No significant exercise tolerance. The patient reports no dry eyes, no irritation, no vision change. Patient reports no difficulty hearing and no ear pain. Patient reports no frequent nose bleeds or nose and sinus problems. Patient reports on arm pain on exertion. No shortness of breath while lying down. No history of heart murmur. Patient reports no cough, no wheezing or coughing up blood. Patient reports no abdominal pain, no vomiting. Normal appetite. No diarrhea and not vomiting blood. No nausea and no constipation. Patient reports no incontinence. No difficulty urinating. No hematuria. No increased frequency. Patient reports no muscle aches. No weakness, no arthralgias, no back pain. No swelling of the extremities. Patient reports no abnormal mole, no jaundice, no rashes. Reports no loss of consciousness. No weakness and no numbness. No seizures, dizziness, or headaches. The patient reports no depression, no sleep disturbance, feeling safe in a relationship and no alcohol abuse. Patient reports on fatigue. Reports no runny nose or sinus pressure. No itching, no hives, and no frequent sneezing. PHYSICAL EXAMINATION: GENERAL: Pleasant female, in no acute distress. HEENT: Normocephalic, atraumatic. NECK: No JVD or bruit. HEART: Regular. LUNGS: Casey are clear. ABDOMEN: Soft, nontender. EXTREMITIES: Pulse 2+. No edema. PLAN: Intervention of LAD. TRANSINT:[id number] Voice Confirmation ID: [id number] DOCUMENT ID: [id number] HISTORY AND PHYSICAL [id number] FANNY HARTMAN,SILVIA Park MD at 1108 CC: [id number] DICTATION DATE: 12/21/16 1317 ART PSYCHOTHERAPIST OR THERAPIST: 12/21/16 1357 DEP CLI 12/21/16 [place] [id number] [place] [id number]
== END 2016-12-21 19:05 | disposition home or self-care (01) ==
LOC: D.CATH 11:03
PROVIDERS: Internal Medicine Interventional Cardiology
DX: I25.119 Atherosclerotic heart disease of native coronary artery with unspecified angina pectoris (principal); I10 Essential (primary) hypertension; E78.5 Hyperlipidemia, unspecified; E11.9 Type 2 diabetes mellitus without complications; Z95.5 Presence of coronary angioplasty implant and graft; Z01.812 Encounter for preprocedural laboratory examination; Z79.899 Other long term (current) drug therapy

== ENCOUNTER → 2017-01-01 09:25 | Outpatient (CLI) | payer OTHER ==
[2016-12-21 11:42] VITALS: BMI 37.8
== END | disposition home or self-care (01) ==
LOC: D.CT 09:25
DX: N28.89 Other specified disorders of kidney and ureter (principal)

== ENCOUNTER → 2017-06-25 12:23 | Outpatient (CLI) | payer OTHER | END | disposition home or self-care (01) | LOC: D.CT 04-09 10:30 | DX: N28.89 Other specified disorders of kidney and ureter (principal) ==

== ENCOUNTER → 2017-10-23 14:38 | Outpatient (CLI) | payer OTHER ==
[~2017-10-23 14:38] MED LIST changes: +BETAPACE 80 MG80 MG PO; +EDARBI40 MG PO; +KRILL OIL 1,001 EAC1 PO; +LOZOL 2.5 MG T2.5 MG PO; +PROTONIX40 MG PO; +TERAZOSIN HCL2 MG PO
== END | disposition home or self-care (01) ==
LOC: D.CT 14:38
DX: R10.13 Epigastric pain (principal)

== ENCOUNTER 2017-10-24 09:43 | Inpatient (IN) | payer OTHER ==
[~2017-10-24] VITALS: Ht 160 cm; Wt 97.2 kg
--- NOTE | ~2017-10-24 | EC ---
PATIENT:FANNY HARTMAN DATE OF SERVICE: 10/24/17 SEX: F MEDICAL RECORD: [id number] DATE OF : 51 LOCATION:D.M2 D.213 AGE OF PATIENT: 61 ADMISSION DATE: 10/24/17 REFERRING PHYSICIAN: INTERPRETING PHYSICIAN: MEKA MADIOSN MD ECHOCARDIOGRAM REPORT ECHO CHARGES 4 ECHO COMPLETE Date: 10/26 CLINICAL DIAGNOSIS: A-FIB ECHOCARDIOGRAPHIC MEASUREMENTS (adult normal given) AC root (d.<3.7cm) 3.0 cm LV Septum d (<1.2 cm> 1.2 cm Valve Excursion 1.5 cm LV Septum (systole) 1.9 cm Left Atria (s.<4.0cm> 4.0 cm LVPW d(<1.2cm) 1.2 cm RV (d.<2.3cm) 2.6 cm LVPW (sytole) 1.7 cm LV diastole(<5.6CM) 4.7 cm MV E-F(>70mm/sec) cm LV systole 2.3 cm LVOT Diameter 2.0 cm MV exc.(>10mm) cm Est.ejection fraction (50-75%) % DOPPLER: LVIT cm/sec A 64.0 cm/sec E 124 cm/sec LA cm/sec RVSP 38.4 mmHg LVOT 94.0 cm/sec AOP1/2T m/s Asc. Ao 130 cm/sec RVOT 50.0 cm/sec RA cm/sec PA 82.0 cm/sec AV Gradient Peak 6.8 mmHg AV Mean 3.5 mmHg AV Area 2.5 cm MV Gradient Peak 4.5 mmHg MV Mean 1.3 mmHg MV Area cm COMMENTS: Commercial Installer: Pricilla COSTAOE Reading Intervention Teacher: 1 Dr. Madison TAPE# PACS Pericardial Effusion N DATE OF SERVICE: 10/26/2017 FINDINGS: 1. Left ventricular chamber size is within normal limits. Left ventricular systolic function is normal. Overall ejection fraction is estimated at 60%. 2. Left atrium, right atrium, and right ventricular chamber sizes are upper limits of normal. Left atrium measures 4.0 cm. 3. Valvular structures have normal structure and motion. 4. Doppler interrogation reveals moderate mitral regurgitation and dyjx-lk-zizwijsc tricuspid regurgitation. No other valvular insufficiency or ECHOCARDIOGRAM REPORT [id number] FANNY HARTMAN stenosis. Pulmonary systolic pressure is estimated at 38 mmHg. 5. No evidence of pericardial effusion or left ventricular thrombus. TRANSINT:[id number] Voice Confirmation ID: [id number] DOCUMENT ID: [id number] MEKA MADISON MD at 1806 CC: [id number] DICTATION DATE: 10/29/17 1501 ELECTRONIC INSTALLER: 10/29/17 1529 DIS IN 10/27/17 [place] [id number] [place] [id number]
[~2017-10-24 09:43] MED LIST changes: -BETAPACE 80 MG80 MG PO; -EDARBI40 MG PO; -KRILL OIL 1,001 EAC1 PO; -LOZOL 2.5 MG T2.5 MG PO; -PROTONIX40 MG PO; -TERAZOSIN HCL2 MG PO
[2017-10-24] MEDS ORDERED: EDARBI40 MG PO (09:56)
[2017-10-24 10:44] LABS: ALBUMIN 3.4 g/dL (3.4-5.0); ALKALINE PHOSPHATASE 65 U/L (46-116); ALT (SGPT) 13 U/L (10-68); BILIRUBIN - TOTAL 0.52 mg/dL (0.2-1.3); CALC OSMOLALITY 274 mosm/kg (275-300); CALCIUM 9.6 mg/dL (8.5-10.1); CARBON DIOXIDE 26.2 mmol/L (21.0-32.0); CHLORIDE - SERUM 99 mmol/L (98-107); CREATININE - SERUM 1.5 mg/dL (0.6-1.3); GLUCOSE 99 mg/dL (74-106); POTASSIUM - SERUM 4.1 mmol/L (3.5-5.1); PROTEIN - SERUM 7.3 g/dL (6.4-8.2); SODIUM 136 mmol/L (136-145); UREA NITROGEN 22 mg/dL (7-18); eGFR NON AFRICAN AMERICAN 37 mL/min (90-120)
[2017-10-24 10:49] LABS: BASOPHILS 0.2 % (0-2); EOSINOPHILS 1.5 % (0-7); HEMATOCRIT 34.6 % (36.0-48.0); HEMOGLOBIN 11.9 g/dL (12-16); IMMATURE GRANULOCYTES 0.2 % (0-5); LYMPHOCYTES 12.6 % (15-50); MCH 30.7 pg (26.0-34.0); MCHC 34.4 g/dL (31.0-37.0); MCV 89.4 fL (80.0-100.0); MEAN PLATELET VOLUME 9.7 fL (7.4-10.4); MONOCYTES 8.4 % (2-11); NEUTROPHILS 77.1 % (40-80); PLATELET COUNT 306 10x3/uL (130-400); RBC 3.87 10x6/uL (4.00-5.40); RDW 12.5 % (11.5-14.5); WBC 13.3 10x3/uL (4.8-10.8)
[2017-10-24 10:55] LABS: AMYLASE - SERUM 125 U/L (25-115); CKMB 0.3 U/L (0.0-3.6); CREATINE KINASE 68 UL (21-215); LIPASE 582 U/L (73-393)
[2017-10-24 10:56] LABS: TROPONIN-I < 0.017 ng/mL (0.000-0.060)
[2017-10-24 11:41] LABS: APPEARANCE SL CLDY (CLEAR); COLOR YELLOW (YELLOW); SPECIFIC GRAVITY 1.015 (1.005-1.020)
[2017-10-24 11:42] LABS: BILIRUBIN NEGATIVE (NEGATIVE); GLUCOSE NEGATIVE (NEGATIVE); KETONE NEGATIVE (NEGATIVE); NITRITE NEGATIVE (NEGATIVE); PROTEIN TRACE mg/dL (NEGATIVE); UROBILINOGEN NORMAL (NORMAL)
[2017-10-24 11:48] LABS: BACTERIA MANY /hpf (NONE SEEN); EPITHELIAL CELLS 0-5 /hpf (0-5); WHITE CELLS - URINE 0-5 /hpf (0-5)
[2017-10-24 11:50] LABS: GRANULAR CAST RARE /lpf (NONE SEEN); HYALINE CAST OCC /lpf (NONE SEEN)
[2017-10-24 14:43] VITALS: BP 191/73; BMI 36.5
[2017-10-24 17:08] LABS: CHOL - HDL RATIO 41.7 ratio (2.3-4.1); LDL-HDL RATIO 37.5 ratio (1.5-3.5)
[2017-10-24 20:37] VITALS: BP 137/86
[2017-10-25 00:16] VITALS: BP 131/54
[2017-10-25 05:37] VITALS: BP 141/65
[2017-10-25 06:21] LABS: BASOPHILS 0.3 % (0-2); EOSINOPHILS 1.8 % (0-7); HEMATOCRIT 32.7 % (36.0-48.0); HEMOGLOBIN 10.9 g/dL (12-16); IMMATURE GRANULOCYTES 0.2 % (0-5); LYMPHOCYTES 14.3 % (15-50); MCH 30.3 pg (26.0-34.0); MCHC 33.3 g/dL (31.0-37.0); MCV 90.8 fL (80.0-100.0); MEAN PLATELET VOLUME 9.4 fL (7.4-10.4); MONOCYTES 9.5 % (2-11); NEUTROPHILS 73.9 % (40-80); PLATELET COUNT 311 10x3/uL (130-400); RDW 12.7 % (11.5-14.5); WBC 10.8 10x3/uL (4.8-10.8)
[2017-10-25 06:47] LABS: ALBUMIN 2.7 g/dL (3.4-5.0); ANION GAP 16.4 mmol/L (8-16); BILIRUBIN - TOTAL 0.44 mg/dL (0.2-1.3); CALCIUM 8.2 mg/dL (8.5-10.1); CARBON DIOXIDE 22.5 mmol/L (21.0-32.0); CREATININE - SERUM 1.2 mg/dL (0.6-1.3); MAGNESIUM - SERUM 1.3 mg/dL (1.8-2.4); POTASSIUM - SERUM 3.9 mmol/L (3.5-5.1); PROTEIN - SERUM 6.6 g/dL (6.4-8.2)
[2017-10-25 12:12] VITALS: Ht 160 cm; Wt 97.2 kg
[2017-10-25 16:48] VITALS: BP 151/86
[2017-10-25 20:42] VITALS: BP 182/82
[2017-10-26] VITALS (7 sets, daily range): BP systolic 133–159; BP diastolic 61–87
[2017-10-26 05:34] LABS: BASOPHILS 0.5 % (0-2); EOSINOPHILS 5.1 % (0-7); HEMATOCRIT 30.6 % (36.0-48.0); IMMATURE GRANULOCYTES 0.1 % (0-5); LYMPHOCYTES 23.2 % (15-50); MCHC 32.7 g/dL (31.0-37.0); MCV 91.9 fL (80.0-100.0); MEAN PLATELET VOLUME 9.4 fL (7.4-10.4); MONOCYTES 8.7 % (2-11); NEUTROPHILS 62.4 % (40-80); PLATELET COUNT 302 10x3/uL (130-400); RBC 3.33 10x6/uL (4.00-5.40); RDW 12.5 % (11.5-14.5)
[2017-10-26 05:43] LABS: WBC 7.3 10x3/uL (4.8-10.8)
[2017-10-26 06:02] LABS: ALBUMIN 2.5 g/dL (3.4-5.0); ANION GAP 10.8 mmol/L (8-16); BILIRUBIN - TOTAL 0.12 mg/dL (0.2-1.3); CALCIUM 7.9 mg/dL (8.5-10.1); CARBON DIOXIDE 23.8 mmol/L (21.0-32.0); MAGNESIUM - SERUM 1.3 mg/dL (1.8-2.4); POTASSIUM - SERUM 3.6 mmol/L (3.5-5.1); PROTEIN - SERUM 6.3 g/dL (6.4-8.2)
[2017-10-26] MEDS ORDERED: BETAPACE 80 MG80 MG PO (15:42)
[2017-10-27 05:56] LABS: BASOPHILS 0.5 % (0-2); EOSINOPHILS 5.4 % (0-7); HEMATOCRIT 28.8 % (36.0-48.0); HEMOGLOBIN 9.5 g/dL (12-16); IMMATURE GRANULOCYTES 0.2 % (0-5); LYMPHOCYTES 27.6 % (15-50); MCH 29.7 pg (26.0-34.0); MEAN PLATELET VOLUME 9.2 fL (7.4-10.4); MONOCYTES 9.2 % (2-11); NEUTROPHILS 57.1 % (40-80); PLATELET COUNT 295 10x3/uL (130-400); RDW 12.6 % (11.5-14.5); WBC 6.3 10x3/uL (4.8-10.8)
[2017-10-27 06:27] LABS: ALBUMIN 2.5 g/dL (3.4-5.0); ANION GAP 10.1 mmol/L (8-16); BILIRUBIN - TOTAL 0.21 mg/dL (0.2-1.3); CALCIUM 7.7 mg/dL (8.5-10.1); CARBON DIOXIDE 25.6 mmol/L (21.0-32.0); CREATININE - SERUM 1.1 mg/dL (0.6-1.3); MAGNESIUM - SERUM 1.5 mg/dL (1.8-2.4); POTASSIUM - SERUM 3.7 mmol/L (3.5-5.1); PROTEIN - SERUM 6.2 g/dL (6.4-8.2)
[2017-10-27 06:30] VITALS: BP 161/70
[2017-10-27 09:15] VITALS: BP 169/88
[2017-10-27] MEDS ORDERED: PROTONIX40 MG PO (12:31)
== END 2017-10-27 16:15 | disposition home or self-care (01) | DRG 439 ==
LOC: D.ER 09:43 → D.M2 12:30
PROVIDERS: Family Medicine
DX: K85.90 Acute pancreatitis without necrosis or infection, unspecified (principal); I47.1 Supraventricular tachycardia; E78.5 Hyperlipidemia, unspecified; I10 Essential (primary) hypertension; F41.9 Anxiety disorder, unspecified; F32.9 Major depressive disorder, single episode, unspecified; I25.10 Atherosclerotic heart disease of native coronary artery without angina pectoris; Z95.5 Presence of coronary angioplasty implant and graft

== ENCOUNTER 2017-11-22 11:08 | Outpatient (CLI) | payer OTHER ==
[~2017-11-22] VITALS: Ht 160 cm; Wt 93.6 kg
--- NOTE | ~2017-11-22 | HEMODYNAMI ---
PATIENT:FANNY HARTMAN MEDICAL RECORD: [id number] : 51 LOCATION:[facility] ADMISSION DATE: 11/22/17 Generatedon:11/22/201714:01 Patient name: FANNY HARTMAN Patient #: [id number] SSN: : Date of study: 11/22/2017 Page: Of Hemodynamic Procedure Report Patient Data Patient Demographics Procedure consent was obtained First Name: FANNY Gender: Female Last Name: DEVAN : 1955 Middle Initial: APPLE Age: 61 year(s) Patient #: [id number] Race: Unknown Additional ID: [id number] Contact details [address]: [address] [place] [address] State: [place] City: [place] Zip code: [address] Past Medical History Allergies Allergen Reaction Date Comments Reported Other allergy 11/22/2017 [id number] REDUCTASE INHIBITORS Other allergy 11/22/2017 SULFA, KEFLEX, STATEINS,SOLUDROL Admission Admission Data Admission Date: 11/22/2017 Admission Time: 11:08 Admit Source: Other Lab Results Lab Result Date: 11/22/2017 Lab Result Time: 0:00 Biochemistry Name Units Result Min Max BUN mg/dl 39 --(----)-* 7 18 Creatinine mg/dl 1.6 --(----)-* 0.6 1.3 CBC Name Units Result Min Max Hemoglobin g/dl 11.3 *-(----)-- 13.5 17.5 Procedure Procedure Types Cath Procedure Diagnostic Procedure LHC LHC w/Coronaries Sedation Charges Moderate Sedation up to 15 minutes PCI Procedure Coronary Stent Coronary Stent Initial Procedure Description Procedure Date Procedure Date: 11/22/2017 Procedure Start Time: 13:33 Procedure End Time: 13:55 Procedure Staff Name Function Paulo Calvin MD Performing Physician Donna Casey RT Monitor Roge Shirley RT Scrub Pepe Paulino RN Nurse Stephenie Lance RT Monitor Procedure Data Cath Procedure Fluoroscopy Diagnostic fluoroscopy Total fluoroscopy Time: 2.5 time: 2.5 min min Diagnostic fluoroscopy Total fluoroscopy dose: dose: 1217 mGy 1217 mGy Contrast Material Contrast Material Type Amount (ml) Isovue 300 113 Entry Location Entry Primary Successful Side Size Upsize Upsize Entry Closure Succes sful Closure Location (Fr) 1 (Fr) 2 (Fr) Remarks Device Remarks Femoral Right 5 Fr 6 Fr Exoseal artery Short Estimated blood loss: 5 ml Diagnostic catheters Device Type Used For End Catheter Placement MULTIPACK JL 4.0 5Fr Procedure catheter MULTIPACK 3DRC 5Fr Procedure catheter MULTIPACK Pigtail 5 Fr Procedure catheter Procedure Complications No complications Procedure Medications Medication Administration Route Dosage Oxygen etCO2 Nasal cannula 2 l/min Heparin Flush Bag added to field 2 bags (1000units/500ml NS) 0.9% NaCl I.V. 100 ml/hr Fentanyl I.V. 50 mcg Versed I.V. 1 mg Heparin Bolus I.V. 4000 units Integrilin (Bolus I.V. 8.5 ml 2mg/ml) Fentanyl I.V. 50 mcg Versed I.V. 1 mg Integrilin (Bolus wasted 1.5 ml 2mg/ml) Plavix P.O. 600 mg Hemodynamics Rest HGB: 11.3 (g/dl) Heart Rate: 67 (bpm) Pressure Samples Time Site Value (mmHg) Purpose Heart Use Rate(bpm) 13:39 LV 129/-4,16 Snapshot 72 13:40 AO 118/65(90) Pullback 78 13:40 LV 133/14,18 Pullback 78 Gradients Valve Time Site 1 Site 2 Mean SEP/DFP Peak To Heart Use (mmHg) (sec/min) Peak Rate (mmHg) (bpm) Aortic 13:40 LV AO 9 22 15 78 133/14,18 118/65(90) Calculations Valve P-P Mean Valve Index Valve Source Name Gradient Area Flow (cm2) Aortic 15 9 15 9 Snapshots Pre Cath Intra NCS Post Cath Vital Signs Time Heart Resp SPO2 etCO2 NIBP (mmHg) Rhythm Pain Sedation Rate (ipm) (%) (mmHg) Status Level (bpm) 13:13:32 67 16 98 0 143/73(103) NSR 0 (11) 10(A) , No pain 13:18:12 68 16 96 0 137/73(95) NSR 0 (11) 10(A) , No pain 13:22:51 72 16 94 0 115/62(85) NSR 0 (11) 10(A) , No pain 13:27:30 68 16 99 33.7 122/66(95) NSR 0 (11) 10(A) , No pain 13:32:06 67 16 98 29.2 112/64(83) NSR 0 (11) 10(A) , No pain 13:36:47 70 17 100 32.9 117/57(84) NSR 0 (11) 10(A) , No pain 13:41:23 79 17 100 26.2 130/78(105) NSR 0 (11) 10(A) , No pain 13:46:02 86 16 100 30.7 121/77(100) NSR 0 (11) 10(A) , No pain 13:50:40 75 17 100 31.5 136/69(105) NSR 0 (11) 10(A) , No pain 13:56:57 68 16 100 33.7 130/71(99) NSR 0 (11) 10(A) , No pain Medications Time Medication Route Dose Verified Delivered Reason Notes Effectiveness by by 13:17:55 Oxygen etCO2 2 Paulo Cantu Per physician Nasal l/min St Melvin Paulino RN cannula 13:18:02 Heparin Flush added 2 Paulo Cantu used for Bag to bags St Melvin Paulino RN procedure (1000units/500ml field MCCARTNEY NS) 13:18:13 0.9% NaCl I.V. 100 Paulo Cantu Per physician ml/hr St Melvin Paulino RN, MD 13:32:08 Fentanyl I.V. 50 Paulo Cantu for sedation mcg St Melvin Paulino RN, MD 13:32:16 Versed I.V. 1 mg Paulo Cantu for sedation St Melvin Paulino RN, MD 13:46:35 Heparin Bolus I.V. 4000 Paulo Cantu for units [facility] Melvin Paulino RN anticoagulation 13:46:51 Integrilin I.V. 8.5 Paulo Cantu for (Bolus 2mg/ml) ml St Melvin Paulino RN antiplatelet MD therapy 13:46:58 Fentanyl I.V. 50 Paulo Cantu for sedation mcg St Melvin Paulino RN, MD 13:47:01 Versed I.V. 1 mg Paulo Cantu for sedation St Melvin Paulino RN, MD 13:53:51 Integrilin wasted 1.5 Paulo Cantu for (Bolus 2mg/ml) ml [facility] Melvin Paulino RN antiplatelet MD therapy 13:56:15 Plavix P.O. 600 Paulo Cantu for mg St Melvin Paulino RN antiplatelet MD therapy Procedure Log Time Note 12:44:18 Informed consent obtained and on chart 12:44:32 Admit Source: Other 12:44:49 Diagnostic Cath status Elective 12:44:50 Time tracking: Regular hours (M-F 7:00 - 5:00) 12:44:54 Plan of Care:Hemodynamics will remain stable., Cardiac rhythm will remain stable., Comfort level will be maintained., Respiratory function will remain adequate., Patient/ family verbilizes understanding of procedure., Procedure tolerated without complication., Recovers from procedure without complications.. 12:47:00 H&P Date Dictated: 11/02/2017 Within 30 days and on chart., H&P Addendum completed by physician on day of procedure. (MUST COMPLETE FOR ALL OUTPATIENTS). 12:47:27 Patient allergic to Other [id number] REDUCTASE INHIBITORS 12:49:20 Lab Result : BUN 39 mg/dl 12:49:20 Lab Result : Creatinine 1.6 mg/dl 12:49:20 Lab Result : Hemoglobin 11.3 g/dl 12:50:24 Pepe Paulino RN sent for patient. Start room use. 13:04:34 Patient received from Pre/Post Procedure Room to CCL 1 Alert and oriented. Tansferred to table in Supine position. 13:04:36 Warm blankets applied, and tripp hugger turned on for patient comfort. 13:04:37 Correct patient and procedure confirmed by team. 13:04:37 ECG and BP/O2 sat monitors applied to patient. 13:12:39 Vital chart was started 13:12:42 Baseline sample Acquired. 13:12:46 Rhythm: sinus rhythm 13:12:47 Full Disclosure recording started 13:12:48 Pre-procedure instructions explained to patient. 13:12:49 Pre-op teaching completed and patient verbalized understanding. 13:12:50 Family in patients room. 13:12:51 Patient NPO since Midnight. 13:17:10 Patient allergic to Other allergySULFA, KEFLEX, STATEINS,SOLUDROL 13:17:12 Is the patient allergic to Iodine/contrast media? No. 13:17:15 Is patient on blood thinner?No 13:17:18 Patient diabetic? No. 13:17:20 Patient not . Patient is over age 55. 13:17:23 Previous problem with sedation/anesthesia? No ? 13:17:24 Snore? Yes 13:17:25 Sleep apnea? No 13:17:26 Deviated septum? No 13:17:27 Opens mouth fully? Yes 13:17:27 Sticks out tongue? Yes 13:17:29 Airway obstruction? No ? 13:17:31 Dentures? No ? 13:17:35 Pre procedure: right dorsailis pedis pulse 2+ Normal; easily identifiable; not easily obliterated 13:17:47 IV patent on arrival in right antecubital with 0.9% NaCl at [facility]. 13:17:50 Lab results completed and on chart. 13:17:53 Right groin area was prepped with chlora-prep and draped in sterile fashion 13:17:54 Alarms reviewed by R. N. 13:17:54 Sharps counted by scrub and verified by R.N. 13:17:55 Oxygen 2 l/min etCO2 Nasal cannula was administered by Pepe Paulino RN; Per physician; 13:17:57 Use device set Femoral Dx 13:17:58 ACIST Syringe (14159) opened to sterile field. 13:17:59 Bag Decanter (2002S) opened to sterile field. 13:18:00 ACIST Hand Control (89010) opened to sterile field. 13:18:00 ACIST Manifold (36216) opened to sterile field. 13:18:02 Heparin Flush Bag (1000units/500ml NS) 2 bags added to field was administered by Pepe Paulino RN; used for procedure; 13:18:02 Tegaderm 4 x 4 (1626W) opened to sterile field. 13:18:03 Medline Cath Pack ([id number]) opened to sterile field. 13:18:03 DIAGNOSTIC WIRE .035 260cm J wire (135421) opened to sterile field. 13:18:05 DIAGNOSTIC Multipack 5Fr catheter set (EM0924) opened to sterile field. 13:18:09 SHEATH Prelude 5Fr 0.035 (BMI-8I-96-035) opened to sterile field. 13:18:13 0.9% NaCl 100 ml/hr I.V. was administered by Pepe Paulino RN; Per physician; :: --------ALL STOP TIME OUT------ :: Final Timeout: patient, procedure, and site verified with staff and physician. All members of the team are in agreement. 13:19:24 Right groin site verified by team. 13::26 Physical assessment completed. ASA score P 2 - A patient with mild systemic disease as per Paulo Calvin MD. 13:19:29 Sedation plan: IV Moderate Sedation Medication:Versed, Fentanyl 13:26:18 Zero performed for pressure channel P1 13:32:08 Fentanyl 50 mcg I.V. was administered by Pepe Paulino RN; for sedation; :32:16 Versed 1 mg I.V. was administered by Pepe Paulino RN; for sedation; 13:33:24 Procedure started. 13:33:59 Local anesthetic to right femoral artery with Lidocaine 2% by Paulo Calvin MD.INITIAL ACCESS ONLY 13:34:11 A 5 Fr sheath was inserted into the Right Femoral artery 13:34:38 A MULTIPACK JL 4.0 5Fr catheter was advanced over the wire and used for Procedure. 13:36:47 LCA angiography performed. 13:36:55 Catheter removed. 13:36:59 A MULTIPACK 3DRC 5Fr catheter was advanced over the wire and used for Procedure. 13:38:30 RCA angiography performed. 13:38:34 Catheter removed. 13:38:44 A MULTIPACK Pigtail 5 Fr catheter was advanced over the wire and used for Procedure. 13:39:10 LV gram done using GREENFIELD 13:39:14 Injector settings: Ml/sec: 10, Volume: 20, 13:39:56 LV hemodynamics recorded. 13:40:05 EF : 55 % 13:40:15 Catheter removed. 13:40:34 SHEATH 6FR [place] (IKL583) opened to sterile field. 13:40:49 INFLATOR Merit BasixCompak (JD3019) opened to sterile field. 13:40:53 WHISPER 300cm guide wire ([id number]) opened to sterile field. 13:42:17 Sheath upsized to a 6 Fr Short. 13:42:54 GUIDE 6FR XBLAD 3.5 catheter ([id number]) opened to sterile field. 13:43:04 6 Fr XBLAD 3.5 guide catheter was inserted over the wire 13:44:05 WHISPER 300 wire advanced. 13:46:35 Heparin Bolus 4000 units I.V. was administered by Pepe Paulino RN; for anticoagulation; 13:46:36 Wire advanced across lesion. 13:46:51 Integrilin (Bolus 2mg/ml) 8.5 ml I.V. was administered by Pepe Paulino RN; for antiplatelet therapy; 13:46:58 Fentanyl 50 mcg I.V. was administered by Pepe Paulino RN; for sedation; 13:47:01 Versed 1 mg I.V. was administered by Pepe Paulino RN; for sedation; 13:47:51 Place stent Inflation Number: 1 A ROSARIO OTW 3.0 x 18 stent ([id number]) was prepped and advanced across the Mid LAD. The stent was deployed at 14 ASMITA for 0:30 (min:sec). 13:49:14 Stent catheter was removed intact over wire. 13:49:15 Wire removed. 13:49:15 Guide catheter removed. 13:49:25 EXOSEAL 6Fr (EX600) opened to sterile field. 13:51:05 Sheath removed intact; hemostasis achieved with Exoseal to the Right Femoral artery. 13:51:07 Procedure ended.(Physican Out) 13:52:20 Fluoroscopy time 02.50 minutes. 13:52:25 Flurop Dose total: 1217 13:52:25 Fluoroscopy dose: 1217 mGy 13:53:50 Contrast amount:Isovue 300 113ml. 13:53:51 Integrilin (Bolus 2mg/ml) 1.5 ml wasted was administered by Pepe Paulino RN; for antiplatelet therapy; 13:53:53 Sharps counted by scrub and verified by R.N. 13:53:56 Insertion/operative site no bleeding no hematoma. 13:53:58 Post-op/insertion site Right Femoral artery dressed using a 4 x 4 and Tegaderm. 13:54:01 Post right femoral artery:stable 13:54:04 Post Procedure Pulses reassessed and unchanged 13:54:07 Post procedure rhythm: unchanged. 13:54:11 Estimated blood loss: 5 ml 13:54:12 Post procedure instruction explained to patient.Patient verbalizes understanding. 13:54:13 Patient needs reinforcement of post procedure teaching. 13:54:27 Procedure type changed to Cath procedure, Diagnostic procedure, LHC, LHC w/Coronaries, Sedation Charges, Moderate Sedation up to 15 minutes, PCI procedure, Coronary Stent, Coronary Stent Initial 13:54:28 Procedure and supply charges have been captured, reviewed, submitted and are correct. 13:54:33 Procedure Complication : No complications 13:54:36 Vital chart was stopped 13:54:37 See physician's report for complete and final results. 13:54:39 Report given to Pre/Post Procedure Room. 13:54:59 Patient transfered to Pre/Post Procedure Room with Stretcher. 13:55:02 Procedure ended. 13:55:02 Full Disclosure recording stopped 13:55:09 ACC-PCI Only Patient was given prescriptions, or instructed by Paulo Calvin MD to start/continue the following medications upon discharge: Plavix 13:55:11 End room use (Document Last) 13:56:15 Plavix 600 mg P.O. was administered by Pepe Paulino RN; for antiplatelet therapy; Intervention Summary Intervention Notes Time ActionType Lesion and Equipment Action# Pressure Duration Attributes Used 13:47:51 Place stent Mid LAD ROSARIO OTW 3.0 1 14 00:30 x 18 stent ([id number]) Device Usage Item Name Manufacture Quantity Catalog Number Hospital Part Current Minimal Lot# / Charge Number Stock Stock Serial# Code ACIST Syringe Acist 1 51558 285058 389002 497546 20 (72358) Medical Systems Inc Bag Decanter Microtek 1 2001S 210994 79000 497786 5 (2001S) Medical Inc. ACIST Hand Acist 1 96908 353889 016662 214195 5 Control (38884) Medical Systems Inc ACIST Manifold Acist 1 65333 612685 574215 031842 5 (38394) Medical Systems Inc Tegaderm 4 x 4 3M 1 1626W 755133 744886 747209 5 (1626W) Medline Cath Cardinal 1 [id number] 759998 63004 835158 5 [facility] ([id number]) DIAGNOSTIC WIRE St Randal 1 606535 987975 852881 751243 30 .035 260cm J wire (105034) DIAGNOSTIC Cardinal 1 PM0533 122990 93084 057472 30 Multipack 5Fr Health catheter set (ZR0510) SHEATH Prelude Merit 1 CPZ-[id number] 195195 770482 364921 5 5Fr 0.035 Medical (WHG-5L-78035) MULTIPACK JL Cardinal 1 769881 5 4.0 5Fr Health catheter MULTIPACK 3DRC Cardinal 1 890696 5 5Fr catheter Health MULTIPACK Cardinal 1 222683 5 Pigtail 5 Fr Health catheter SHEATH 6FR Terumo 1 YLF928 149379 155121 642484 40 [place] (LCQ988) INFLATOR Merit Merit 1 YX5409 610604 861870 419937 15 BasixCompak Medical (TV6100) WHISPER 300cm Delvalle 1 [id number] 282257 009278 448097 5 guide wire Vascular ([id number]) GUIDE 6FR XBLAD Cardinal 1 [id number] 715641 769738 196030 10 3.5 catheter Health (57629089) ROSARIO OTW 3.0 x Medtronic 1 [id number] 658759 7418173 297031 5 [id number] 18 stent ([id number]) EXOSEAL 6Fr Cardinal 1 EX600 829677 169388 826014 10 (EX600) Health Signature Audit [place] Stage Time Signature Unsigned Intra-Procedure 11/22/2017 Stephenie Lance 2:01:51 PM RT(R) Signatures Monitor : Donna Casey Signature : RT Date : Time : Monitor : Stephenie Lance RT Signature : Date : Time : [facility] [address] [facility] [place] [address]
--- NOTE | ~2017-11-22 | OP ---
PATIENT NAME: FANNY HARTMAN MEDICAL RECORD: [id number] :51 LOCATION:D.CAT ADMISSION DATE: SURGEON: SILVIA WHITE MD DATE OF OPERATION: 11/22/2017 PROCEDURE: Left heart catheterization, selective coronary angiography, right femoral artery approach. CATHETERS: A 5-Canadian sheath, 5/4 left and right Felipe, 5/4 pig. The procedure was well tolerated. We proceeded with PTCA stenting of LAD after procedure was finished. FINDINGS: Left ventriculography in 30-degree GREENFIELD view: Normal wall motion and normal systolic function. CORONARY ANATOMY: LEFT MAIN: Left main is free of disease. LAD: The previously placed stent is widely patent. There is a ring-like lesion in area of accelerated stenosis, not on previous film. CIRCUMFLEX: Circumflex stent free of disease. RIGHT CORONARY ARTERY: Free of disease. PLAN: Intervention to LAD momentarily. DESCRIPTION OF PROCEDURE: A 5-Canadian sheath was exchanged for a 6-Canadian sheath. An EBU 3.5 guiding catheter provided good guide catheter support followed 300 cm Whisper wire, which was placed across the occluded LAD down this portion of vessel, 80% lesion was addressed with a 3.0 x 15 mm Mihir drug-eluting stent up to 14 atmospheres for 45 seconds. Final angiography shows hyperexpanded stent with a nice step up and step down. TRACIE flow was 3 throughout the procedure. Heparin and Integrilin was used in the case. The patient was loaded with Plavix in the lab. TRANSINT:[id number] Voice Confirmation ID: [id number] DOCUMENT ID: [id number] SILVIA WHITE MD at 0834 CC: [id number] DICTATION DATE: 11/22/17 1401 EQUIPMENT SERVICE TECHNICIAN: 11/22/17 1412 DEP CLI 11/22/17 [place] [id number] [place] [id number]
[~2017-11-22 11:08] MED LIST changes: +BETAPACE 80 MG80 MG PO; +EDARBI40 MG PO; +PROTONIX40 MG PO
[2017-11-22] MEDS ORDERED: LOZOL 2.5 MG T2.5 MG PO (11:21)
[2017-11-22] MEDS ORDERED: TERAZOSIN HCL2 MG PO (11:21)
[2017-11-22] MEDS ORDERED: KRILL OIL 1,001 EAC1 PO (11:24)
[2017-11-22 11:37] VITALS: BP 124/63; Ht 160 cm; Wt 93.6 kg
[2017-11-22 11:53] LABS: BASOPHILS 0.6 % (0-2); HEMATOCRIT 33.3 % (36.0-48.0); HEMOGLOBIN 11.3 g/dL (12-16); LYMPHOCYTES 26.1 % (15-50); MCH 30.5 pg (26.0-34.0); MCHC 33.9 g/dL (31.0-37.0); MEAN PLATELET VOLUME 9.5 fL (7.4-10.4); MONOCYTES 6.8 % (2-11); NEUTROPHILS 63.5 % (40-80); PLATELET COUNT 290 10x3/uL (130-400); RDW 12.7 % (11.5-14.5); WBC 5.3 10x3/uL (4.8-10.8)
[2017-11-22 11:58] LABS: CARBON DIOXIDE 25.5 mmol/L (21.0-32.0); CREATININE - SERUM 1.6 mg/dL (0.6-1.3)
[2017-11-22 12:05] LABS: ANION GAP 12.6 mmol/L (8-16); POTASSIUM - SERUM 4.1 mmol/L (3.5-5.1)
[2017-11-22] MEDS ORDERED: PLAVIX75 MG PO (14:12)
== END 2017-11-22 17:55 | disposition home or self-care (01) ==
LOC: D.CATH 11:08
PROVIDERS: Internal Medicine Interventional Cardiology
DX: I25.119 Atherosclerotic heart disease of native coronary artery with unspecified angina pectoris (principal); Z01.812 Encounter for preprocedural laboratory examination

== ENCOUNTER 2018-03-23 11:03 | Inpatient (IN) | payer OTHER ==
[~2018-03-23] VITALS: Ht 160 cm; Wt 95.9 kg
[~2018-03-23 11:03] MED LIST changes: +KRILL OIL 1,001 EAC1 PO; +LOZOL 2.5 MG T2.5 MG PO; +TERAZOSIN HCL2 MG PO
[2018-03-23] MEDS ORDERED: SORINE80 MG PO (11:08)
[2018-03-23 11:41] LABS: BASOPHILS 0.4 % (0-2); EOSINOPHILS 0 % (0-7); HEMATOCRIT 32.4 % (36.0-48.0); HEMOGLOBIN 11.3 g/dL (12-16); IMMATURE GRANULOCYTES 0.1 % (0-5); LYMPHOCYTES 12.9 % (15-50); MCH 30.7 pg (26.0-34.0); MCHC 34.9 g/dL (31.0-37.0); MEAN PLATELET VOLUME 9.5 fL (7.4-10.4); NEUTROPHILS 79.6 % (40-80); PLATELET COUNT 300 10x3/uL (130-400); RBC 3.68 10x6/uL (4.00-5.40); RDW 12.4 % (11.5-14.5); WBC 9.7 10x3/uL (4.8-10.8)
[2018-03-23 12:36] LABS: ALBUMIN 3.4 g/dL (3.4-5.0); ALKALINE PHOSPHATASE 68 U/L (46-116); ALT (SGPT) 23 U/L (10-68); BILIRUBIN - TOTAL 0.44 mg/dL (0.2-1.3); CALC OSMOLALITY 278 mosm/kg (275-300); CALCIUM 9.4 mg/dL (8.5-10.1); CARBON DIOXIDE 20.7 mmol/L (21.0-32.0); CHLORIDE - SERUM 99 mmol/L (98-107); CREATININE - SERUM 2.2 mg/dL (0.6-1.3); GLUCOSE 128 mg/dL (74-106); POTASSIUM - SERUM 3.6 mmol/L (3.5-5.1); PROTEIN - SERUM 8.5 g/dL (6.4-8.2); SODIUM 135 mmol/L (136-145); UREA NITROGEN 33 mg/dL (7-18); eGFR NON AFRICAN AMERICAN 24 mL/min (90-120)
[2018-03-23 12:38] LABS: AMYLASE - SERUM 137 U/L (25-115); LIPASE 936 U/L (73-393)
[2018-03-23 12:39] LABS: TROPONIN-I < 0.017 ng/mL (0.000-0.060)
[2018-03-23 13:57] VITALS: BP 136/64
[2018-03-23 14:01] LABS: APPEARANCE HAZY (CLEAR); BILIRUBIN NEGATIVE (NEGATIVE); COLOR YELLOW (YELLOW); GLUCOSE NEGATIVE (NEGATIVE); KETONE NEGATIVE (NEGATIVE); NITRITE NEGATIVE (NEGATIVE); PROTEIN 2+ mg/dL (NEGATIVE); UROBILINOGEN NORMAL (NORMAL)
[2018-03-23 14:02] LABS: BACTERIA MODERATE /hpf (NONE SEEN); EPITHELIAL CELLS 0-5 /hpf (0-5); RED CELLS - URINE 0-5 /hpf (0-5); WHITE CELLS - URINE 0-5 /hpf (0-5)
--- NOTE | 2018-03-23 17:03 | MORECARE ---
CASE MANAGEMENT DISCHARGE SUMMARY PATIENT: FANNY AREVALO UNIT: [id number] ADM DATE: 03/23/18 AGE: 62 : 51 SEX: F ROOM/BED: D.1206 AUTHOR: PRABHA MAYFIELD PHYSICIAN: REFERRING PHYSICIAN: DURAN LONG MD DATE OF SERVICE: 03/23/18 Discharge Plan Patient Name: [facility]ANNY [facility] [facility] 1955 Planned Disposition: Home Anticipated Discharge Date: 03/25/18 Discharge Date: Expected LOS: 2 Initial Reviewer: [email or web address] Initial Review Date: 03/23/2018 Generated: 03/23/18 6:03 pm DCPIA - Discharge Planning Initial Assessment Updated by [email or web address]: Marion Garcia on 03/23/18 5:02 pm * Is the patient Alert and Oriented? Yes * How many steps to enter\exit or inside your home? * PCP Dr. Echols * Pharmacy [facility] * Preadmission Environment Home with Family * ADLs Independent * Equipment None * List name and contact numbers for known caregivers / representatives who currently or will assist patient after discharge: Adonay Arevalo [facility] - [phone] * Verbal permission to speak to the caregivers and representatives has been obtained from the patient. Yes * Community resources currently utilized None * Additional services required to return to the preadmission environment? No * Can the patient safely return to the preadmission environment? Yes * Has this patient been hospitalized within the prior 30 days at any hospital? No Patient Name: FANNY AREVALO Page [phone] at 1703 All edits/amendments must be made on the electronic document DICTATION DATE: 03/23/181701 SUPERVISOR PIPE FINISHING: DUSTIN 03/23/181701 RPT#: [id number] DC DATE: STATUS: ADM IN [facility] [address] [place] [address] END OF REPORT
--- NOTE | 2018-03-23 17:10 | MORECARE ---
CASE MANAGEMENT DISCHARGE SUMMARY PATIENT: FANNY AREVALO UNIT: [id number] ADM DATE: 03/23/18 AGE: 62 : 51 SEX: F ROOM/BED: D.1206 AUTHOR: CHAPARRO,DOC PHYSICIAN: REFERRING PHYSICIAN: DURAN LONG MD DATE OF SERVICE: 03/23/18 Discharge Plan Patient Name: FANNY AREVALO Facility: [facility]:[place] : 1955 Planned Disposition: Home Anticipated Discharge Date: 03/25/18 Discharge Date: Expected LOS: 2 Initial Reviewer: [email or web address] Initial Review Date: 03/23/2018 Generated: 03/23/18 6:10 pm Comments DCP- Discharge Planning Updated by [email or web address]: Marion Garcia on 03/23/18 4:[address] Patient Name: FANNY AREVALO Admission Status: ER Accout number: [id number] Admission Date: 03-23-2018 : 1955 Admission Diagnosis: Attending: DURAN LONG Current LOS: 1 Anticipated DC Date: 03-25-2018 Planned Disposition: Home Primary Insurance: [employer]ET[employer] PPO Discharge Planning Comments: CM met with patient to complete initial dc planning assessment. CM educated patient on the CM role and verbal consent given by patient to complete assessment. Patient lives at home independently with her . At discharge patient plans to return home with her and feels this is a safe discharge. CM discussed availability of home health, rehab services, and medical equipment. Patient denied known discharge needs at this time. CM will continue to follow and will assist as needed with dc plans/needs. Valuation Consultant: Marion Garcia RN, [facility] DCPIA - Discharge Planning Initial Assessment Updated by [email or web address]: Marion Garcia on 03/23/18 5:02 pm * Is the patient Alert and Oriented? Yes * How many steps to enter\exit or inside your home? * PCP Dr. Echols * Pharmacy [facility] * Preadmission Environment Home with Family * ADLs Independent * Equipment None * List name and contact numbers for known caregivers / representatives who currently or will assist patient after discharge: Adonay Arevalo [facility] - [phone] * Verbal permission to speak to the caregivers and representatives has been obtained from the patient. Yes * Community resources currently utilized None * Additional services required to return to the preadmission environment? No * Can the patient safely return to the preadmission environment? Yes * Has this patient been hospitalized within the prior 30 days at any hospital? No Last DP export: 03/23/18 4:03 p Patient Name: FANNY AREVALO Page 68102 at 1710 All edits/amendments must be made on the electronic document DICTATION DATE: 03/23/181709 CATTLE DIPPER: DUSTIN 03/23/181709 RPT#: [id number] DC DATE: STATUS: ADM IN [facility] [address] [place] [address] END OF REPORT
[2018-03-23 17:35] VITALS: BP 127/50; BMI 36.3
[2018-03-23 19:39] VITALS: BP 109/48
[2018-03-23 23:31] VITALS: BP 126/55
[2018-03-24 04:24] VITALS: BP 118/54
[2018-03-24 06:27] LABS: BASOPHILS 0.4 % (0-2); EOSINOPHILS 0 % (0-7); HEMATOCRIT 29.2 % (36.0-48.0); HEMOGLOBIN 9.7 g/dL (12-16); IMMATURE GRANULOCYTES 0.2 % (0-5); LYMPHOCYTES 15.2 % (15-50); MCH 30.3 pg (26.0-34.0); MCHC 33.2 g/dL (31.0-37.0); MEAN PLATELET VOLUME 9.4 fL (7.4-10.4); NEUTROPHILS 73.2 % (40-80); PLATELET COUNT 269 10x3/uL (130-400); RDW 12.7 % (11.5-14.5); WBC 8.1 10x3/uL (4.8-10.8)
[2018-03-24 06:50] LABS: MCV 91.3 fL (80.0-100.0)
[2018-03-24 06:51] LABS: ALBUMIN 2.7 g/dL (3.4-5.0); BILIRUBIN - TOTAL 0.45 mg/dL (0.2-1.3); CALCIUM 7.8 mg/dL (8.5-10.1); CARBON DIOXIDE 20.7 mmol/L (21.0-32.0); POTASSIUM - SERUM 3.7 mmol/L (3.5-5.1); PROTEIN - SERUM 6.4 g/dL (6.4-8.2)
[2018-03-24 06:53] LABS: CREATININE - SERUM 1.6 mg/dL (0.6-1.3)
[2018-03-24 08:31] LABS: CHOL - HDL RATIO 4.5 ratio (2.3-4.1)
[2018-03-24 08:57] VITALS: BP 124/58
[2018-03-24 11:00] VITALS: BP 127/53
[2018-03-24 15:00] VITALS: BP 139/57
[2018-03-24 19:45] VITALS: BP 145/71
[2018-03-24 23:55] VITALS: BP 121/58
[2018-03-25 03:55] VITALS: BP 118/56
[2018-03-25 06:52] LABS: BASOPHILS 0.6 % (0-2); EOSINOPHILS 0 % (0-7); HEMATOCRIT 27.7 % (36.0-48.0); IMMATURE GRANULOCYTES 0.2 % (0-5); LYMPHOCYTES 25.7 % (15-50); MCH 29.9 pg (26.0-34.0); MCHC 32.5 g/dL (31.0-37.0); MEAN PLATELET VOLUME 9.7 fL (7.4-10.4); MONOCYTES 9.9 % (2-11); NEUTROPHILS 63.6 % (40-80); PLATELET COUNT 253 10x3/uL (130-400); RBC 3.01 10x6/uL (4.00-5.40); RDW 12.7 % (11.5-14.5); WBC 6.2 10x3/uL (4.8-10.8)
[2018-03-25 07:08] LABS: ANION GAP 18.8 mmol/L (8-16); CALCIUM 7.5 mg/dL (8.5-10.1); CARBON DIOXIDE 18.1 mmol/L (21.0-32.0); CREATININE - SERUM 1.2 mg/dL (0.6-1.3); POTASSIUM - SERUM 3.9 mmol/L (3.5-5.1)
[2018-03-25 08:35] VITALS: BP 117/53
[2018-03-25 11:38] VITALS: BP 128/62
[2018-03-25 13:56] VITALS: Ht 160 cm; Wt 95.9 kg
[2018-03-25 20:00] VITALS: BP 143/63
[2018-03-26] VITALS: BP 124/48
[2018-03-26 05:00] VITALS: BP 161/72
[2018-03-26 06:21] VITALS: BP 144/76
[2018-03-26 07:29] LABS: ALBUMIN 2.3 g/dL (3.4-5.0); ANION GAP 16.2 mmol/L (8-16); BILIRUBIN - TOTAL 0.31 mg/dL (0.2-1.3); C-REACTIVE PROTEIN 7.7 mg/dL (0.0-0.9); CALCIUM 7.7 mg/dL (8.5-10.1); CARBON DIOXIDE 19.2 mmol/L (21.0-32.0); CREATININE - SERUM 1.1 mg/dL (0.6-1.3); POTASSIUM - SERUM 3.4 mmol/L (3.5-5.1); PROTEIN - SERUM 6.2 g/dL (6.4-8.2)
[2018-03-26 07:55] LABS: BASOPHILS 0.7 % (0-2); EOSINOPHILS 0 % (0-7); HEMOGLOBIN 8.8 g/dL (12-16); IMMATURE GRANULOCYTES 0.2 % (0-5); LYMPHOCYTES 27.5 % (15-50); MCH 30.1 pg (26.0-34.0); MCHC 33.8 g/dL (31.0-37.0); MEAN PLATELET VOLUME 9.6 fL (7.4-10.4); MONOCYTES 9.7 % (2-11); NEUTROPHILS 61.9 % (40-80); PLATELET COUNT 258 10x3/uL (130-400); RBC 2.92 10x6/uL (4.00-5.40); RDW 12.4 % (11.5-14.5); WBC 5.8 10x3/uL (4.8-10.8)
[2018-03-26 09:05] VITALS: BP 132/81
[2018-03-26 12:33] VITALS: BP 138/63
--- NOTE | 2018-03-26 16:26 | MORECARE ---
CASE MANAGEMENT DISCHARGE SUMMARY PATIENT: FANYN AREVALO UNIT: [id number] ADM DATE: 03/23/18 AGE: 62 : 51 SEX: F ROOM/BED: D.1206 AUTHOR: CHAPARRO,DOC PHYSICIAN: REFERRING PHYSICIAN: DURAN LONG MD DATE OF SERVICE: 03/26/18 Discharge Plan Patient Name: FANNY AREVALO Facility: [facility]:[place] : 1955 Planned Disposition: Home Anticipated Discharge Date: 03/25/18 Discharge Date: 03/26/2018 Expected LOS: 2 Initial Reviewer: [email or web address] Initial Review Date: 03/23/2018 Generated: 03/26/18 5:26 pm DCP- Discharge Planning Updated by [email or web address]: Marion Garcia on 03/23/18 4:[address] Patient Name: FANNY AREVALO Admission Status: ER Accout number: [id number] Admission Date: 03-23-2018 : 1955 Admission Diagnosis: Attending: DURAN LONG Current LOS: 1 Anticipated DC Date: 03-25-2018 Planned Disposition: Home Primary Insurance: [employer]ET[employer] PPO Discharge Planning Comments: CM met with patient to complete initial dc planning assessment. CM educated patient on the CM role and verbal consent given by patient to complete assessment. Patient lives at home independently with her . At discharge patient plans to return home with her and feels this is a safe discharge. CM discussed availability of home health, rehab services, and medical equipment. Patient denied known discharge needs at this time. CM will continue to follow and will assist as needed with dc plans/needs. Care Associate: Marion Garcia RN, [facility] DCPIA - Discharge Planning Initial Assessment Updated by [email or web address]: Marion Garcia on 03/23/18 5:02 pm * Is the patient Alert and Oriented? Yes * How many steps to enter\exit or inside your home? * PCP Dr. Echols * Pharmacy [facility] * Preadmission Environment Home with Family * ADLs Independent * Equipment None * List name and contact numbers for known caregivers / representatives who currently or will assist patient after discharge: Adonay Arevalo [facility] - [phone] * Verbal permission to speak to the caregivers and representatives has been obtained from the patient. Yes * Community resources currently utilized None * Additional services required to return to the preadmission environment? No * Can the patient safely return to the preadmission environment? Yes * Has this patient been hospitalized within the prior 30 days at any hospital? No Last DP export: 03/23/18 4:10 p Patient Name: FANNY AREVALO Page [phone] at 1626 All edits/amendments must be made on the electronic document DICTATION DATE: 03/26/181624 COMBAT CONTROL: DUSTIN 03/26/181624 RPT#: [id number] DC DATE:03/26/18 STATUS: DIS IN [facility] [address] [place] [address] END OF REPORT
== END 2018-03-26 14:46 | disposition home or self-care (01) | DRG 439 ==
LOC: D.ER 11:03 → D.M3 14:10 → D.EDHOLD 14:10 → D.M3 15:59
PROVIDERS: Family Medicine; ADMIT Internal Medicine Nephrology
DX: K85.90 Acute pancreatitis without necrosis or infection, unspecified (principal); N17.9 Acute kidney failure, unspecified; E86.9 Volume depletion, unspecified; D64.9 Anemia, unspecified; I10 Essential (primary) hypertension; I25.10 Atherosclerotic heart disease of native coronary artery without angina pectoris; F41.9 Anxiety disorder, unspecified; F32.9 Major depressive disorder, single episode, unspecified

== ENCOUNTER → 2018-08-30 10:00 | Outpatient (CLI) | payer BC ==
[2018-03-25 13:56] VITALS: BMI 36.6
[~2018-08-30 10:00] MED LIST changes: +SORINE80 MG PO
== END | disposition home or self-care (01) ==
LOC: D.MAMMO 10:00
PROVIDERS: ATTEND Family Medicine
DX: Z12.31 Encounter for screening mammogram for malignant neoplasm of breast (principal)

== ENCOUNTER → 2019-03-13 09:55 | Outpatient (CLI) | payer MEDICARE, BC ==
[2018-03-25 13:56] VITALS: BMI 36.6
--- NOTE | 2019-03-17 12:18 | EC ---
PATIENT:FANNY HARTMAN DATE OF SERVICE: 03/13/19 SEX: F MEDICAL RECORD: [id number] DATE OF : [birth year] LOCATION:[facility] AGE OF PATIENT: 63 ADMISSION DATE: 03/13/19 REFERRING PHYSICIAN: INTERPRETING PHYSICIAN: SILVIA WHITE MD ECHOCARDIOGRAM REPORT ECHO CHARGES 4 ECHO COMPLETE Date: 03/13/19 CLINICAL DIAGNOSIS: H/O A-FIB/HTN/CAD ECHOCARDIOGRAPHIC MEASUREMENTS (adult normal given) AC root (d.<3.7cm) 2.7 cm LV Septum d (<1.2 cm> 1.4 cm Valve Excursion 1.7 cm LV Septum (systole) 1.9 cm Left Atria (s.<4.0cm> 3.9 cm LVPW d(<1.2cm) 1.2 cm RV (d.<2.3cm) 2.3 cm LVPW (sytole) 1.7 cm LV diastole(<5.6CM) 5.2 cm MV E-F(>70mm/sec) cm LV systole 3.0 cm LVOT Diameter 1.7 cm MV exc.(>10mm) cm Est.ejection fraction (50-75%) % DOPPLER: LVIT cm/sec A 34.0 cm/sec E 83.0 cm/sec LA cm/sec RVSP 37.3 mmHg LVOT 69.0 cm/sec AOP1/2T m/s Asc. Ao 125 cm/sec RVOT 49.0 cm/sec RA cm/sec PA 77.0 cm/sec AV Gradient Peak 6.3 mmHg AV Mean 3.4 mmHg AV Area 1.3 cm MV Gradient Peak 3.8 mmHg MV Mean 1.4 mmHg MV Area cm COMMENTS: OP - HC [place] Operator: 1 TEDDY OBED Quality Assurance Engineer: 3 Dr. Estrada TAPE# PACS Pericardial Effusion N DATE OF SERVICE: Adequate 2D, color flow imaging, spectral Doppler, and M-mode. LVH is present. LV internal dimension is normal. Wall motion is normal. EF is greater than or equal to 55%. Aortic valve is sclerotic. There is no evidence of stenosis by Doppler interrogation. There is mild AI. The left atrium is normal. Mitral valve shows no prolapse. Moderate MR. Right-sided chambers are grossly normal. Moderate TR. ECHOCARDIOGRAM REPORT [id number] FANNY HARTMAN TRANSINT:[id number] Voice Confirmation ID: [id number] DOCUMENT ID: [id number] SILVIA WHITE MD at 1218 CC: [id number] DICTATION DATE: 03/14/19 141 [employer] REPRESENTATIVE: 03/14/192223 DEP CLI 03/13/19 [facility] [address] [id number]
== END | disposition home or self-care (01) ==
LOC: D.HCCECHO 09:55
PROVIDERS: ATTEND Internal Medicine Interventional Cardiology
DX: I34.0 Nonrheumatic mitral (valve) insufficiency (principal)